=== PATIENT | female | born 1965 | race Caucasian/White ===

== ENCOUNTER 2021-03-02 17:19 | Inpatient (IN) | payer OTHER ==
--- OUTSIDE RECORDS SUMMARY | 2021-03-02 17:23 | XMS REPORT | Continuity of Care Document ---
:1965 Author Organization [facility] t Address [address] [place] [address] Care Team Providers Name Role Phone MENA FARR Attending Clinician Unavailable AMINA Attending Clinician Unavailable MD MARS SANCHZE Attending Clinician Unavailable MICHEL Attending Clinician Unavailable CLIFTON Attending Clinician Unavailable DO FRANCISCA LEONG Attending Clinician Unavailable DR ASHWIN Attending Clinician Unavailable MD BERNARDA FERNANDEZ Attending Clinician Unavailable REBECCA Attending Clinician Unavailable DR Kasandra HOPE Attending Clinician Unavailable ASHWIN Attending Clinician Unavailable MD Ludin CHRISTOPHER Attending Clinician Unavailable Ely Attending Clinician Unavailable MENA FARR Admitting Clinician Unavailable TREASURE Admitting Clinician Unavailable MD TREASURE Admitting Clinician Unavailable SALO Admitting Clinician Unavailable DO FRANCISCA LEONG Admitting Clinician Unavailable DR ASHWIN Admitting Clinician Unavailable MD BERNARDA FERNANDEZ Admitting Clinician Unavailable REBECCA Admitting Clinician Unavailable DR Kasandra HOPE Admitting Clinician Unavailable ASHWIN Admitting Clinician Unavailable MD Ludin CHRISTOPHER Admitting Clinician Unavailable Ely Admitting Clinician Unavailable Payers Payer Name Policy Type Policy Number Effective Date Expiration Date [id number] ADV 00:00:00 Problems This patient has no known problems. Allergies, Adverse Reactions, Alerts Allergy Allergy Status Severity Reaction(s) Onset Inactive Treating Comm ents Source Name Type Date Date Clinician POLLENS Allergy Active Other [facility] NO KNOWN Allergy Active [facility] ALLERGIE S Medications Ordered Filled Start Stop Current Ordering Indication Dosage Frequency Signature Comments Components Source Medication Medication Date Date Medication? Clinician (SIG) Name Name Spironolact Spironolact 2019- No Muriel [address] [facility] one one 09-04 [facility] Vital Signs Vital Name Observation Time Observation Value Comments Source HEIGHT 2020-04-21 18:46:00 162.6 cm WEIGHT 2020-04-21 18:46:00 99.338 kg HEIGHT 2020-04-12 23:28:00 162.6 cm WEIGHT 2020-04-12 23:28:00 91.445 kg HEIGHT 2020-04-21 18:46:00 162.6 cm WEIGHT 2020-04-21 18:46:00 99.338 kg HEIGHT 2020-04-12 23:28:00 162.6 cm WEIGHT 2020-04-12 23:28:00 91.445 kg Procedures This patient has no known procedures. Encounters Start End Encounter Admission Attending Care Care Encounter Source Date/Time Date/Time Type Type Clinicians Facility Department ID 2020-12-17 Inpatient [facility] [id number] [facility] 03:25:31 [facility] 2020-04-12 Inpatient [facility] [id number] [facility] 21:20:00 [facility] 2020-12-26 2021-01-11 Inpatient ERIK HUYNH [facility] [id number] [place] 00:00:00 00:00:[address] 2020-12-23 2020-12-23 Outpatient [facility] [id number] 2020-12-22 2020-12-22 Outpatient [facility] [id number] [place] 00:00:00 00:00:00 ATA [address] 2020-12-09 2020-12-09 Out[facility] [id number] [facility] 2020-11-29 2020-12-03 Inpatient CLIFTON, [facility] [id number] [place] 00:00:00 00:00:00 PADMINI 234 Method i 2020-11-25 2020-11-25 [facility] [id number] [place] 13:00:00 13:00:00 [facility] [place] 2020-11-24 2020-11-24 Inpatient REBECCA, [facility] [id number] [place] 00:00:00 00:00:00 [facility] 707 Method i 2020-11-15 2020-11-15 Outpatient Noelle [facility] [id number] [place] 12:18:00 14:45:00 [facility] [place] 2020-11-07 2020-11-07 Outpatient [facility] [id number] [place] 00:00:00 00:00:00 [facility] 2020-10-18 2020-10-18 Outpatient [facility] [id number] [place] 00:00:00 00:00:00 PHU 793 Method i 2020-10-17 2020-10-17 Outpatient [facility] [id number] [place] 00:00:00 00:00:00 PHU 160 Method i 2020-08-10 2020-08-10 Outpatient [facility] [id number] [place] 00:00:00 00:00:00 [facility] 2020-08-10 2020-08-10 Outpatient [facility] [id number] [facility] 2020-07-11 2020-07-11 Outpatient [facility] [id number] [place] 00:00:00 00:00:00 PHU [address] 2020-07-07 2020-07-07 Outpatient [facility] [id number] [place] 00:00:00 00:00:00 PHU [address] 2020-05-25 2020-05-25 Outpatient ASHWIN [facility] [id number] [place] 00:00:00 00:00:00 [facility] [address] 2020-05-17 2020-05-17 Outpatient [facility] [id number] [facility] 2020-05-16 2020-05-16 Outpatient [place] [id number] [place] 00:00:00 00:00:00 PHU [address] 2020-05-09 2020-05-09 Outpatient [facility] [id number] [facility] 2020-03-22 2020-03-22 Outpatient [facility] [id number] [facility] 2020-01-12 2020-01-12 Outpatient Young_J MMG MMG [id number] [place] 10:29:00 10:29:00 [facility] 2019-09-01 2019-09-01 [facility] [id number] 15:38:00 15:38:00 [facility] Medicine Outpati ent Clinics 2019-08-19 2019-08-19 [facility] [id number] 10:05:00 10:05:00 [facility] Medicine Outpati ent Clinics 2019-08-06 2019-08-06 [facility] [id number] 22:34:00 22:34:00 [facility] Medicine Outpati ent Clinics 2019-08-06 2019-08-06 [facility] [id number] 10:20:00 10:20:00 [facility] Medicine Outpati ent Clinics 2019-01-19 2019-01-19 [facility] [id number] 21:57:00 21:57:00 [facility] Medicine Medicine Outpati ent Clinics 2019-01-19 2019-01-19 [facility] [id number] 10:20:00 10:20:00 [facility] Medicine l Medicine Outpati ent Clinics 2018-07-15 2018-07-15 [facility] [id number] 09:26:00 09:26:00 t [facility] Medicine l Medicine Outpati ent Clinics 2018-06-02 2018-06-02 [facility] [id number] 11:34:00 11:34:00 t [facility] Medicine Medicine Outpati ent Clinics 2018-05-28 2018-05-28 [facility] [id number] 16:42:00 16:42:00 t [facility] Medicine l Medicine Outpati ent Clinics 2018-05-22 2018-05-22 [facility] [id number] 09:36:00 09:36:00 t [facility] Medicine l Medicine Outpati ent Clinics 2018-05-21 2018-05-21 [facility] [id number] 23:31:00 23:31:00 t [facility] Medicine Medicine Outpati ent Clinics 2018-05-21 2018-05-21 [facility] [id number] 15:45:00 15:45:00 t [facility] Medicine l Medicine Outpati ent Clinics 2017-10-02 2017-10-02 [facility] [id number] 10:30:00 10:30:00 t [facility] Medicine l Medicine Outpati ent Clinics 2017-07-31 2017-07-31 [facility] [id number] 09:53:00 09:53:00 t [facility] 2017-06-26 2017-06-26 [facility] [id number] 14:00:00 14:00:00 [facility] Results Test Description Test Time Test Comments Results Result Comments Source SARS-CoV-2 (COVID-19) RNA [Presence] in Respiratory sp ecimen by 2021-01-02 12:39:53 VICTOR M with probe detection Test Item Value Reference Range Interpretation Comme nts SARS-CoV-2 (COVID-19) RNA [Presence] in Respiratory Not detected No t-Detected specimen by VICTOR M with probe detection (test code = 62966-1) Whether patient is employed in a healthcare setting (test code = 93251-6) Whether the patient has symptoms related to condition of interest (test code = 41937-8) Patient was hospitalized because of this condition (test code = 40364-0) Whether the patient was admitted to intensive care unit (ICU) for condition of interest (test code = 90494-4) Whether patient resides in a congregate care setting (test code = 79362-1) SARS-CoV-2 (COVID-19) RNA [Presence] in Respiratory specimen by VICTOR M with probe [id number] 17:45:00 Test Item Value Reference Range Interpretation Comments SARS-CoV-2 (COVID-19) RNA Not detected Not-Detected [Presence] in Respiratory specimen by VICTOR M with probe detection (test code = 52990-2) Whether patient is employed in a healthcare setting (test code = 67425-6) Whether the patient has symptoms related to condition of interest (test code = 43939-0) Patient was hospitalized because of this condition (test code = 10614-2) Whether the patient was admitted to intensive care unit (ICU) for condition of interest (test code = 59727-4) Whether patient resides in a congregate care setting (test code = 11346-2) SARS-CoV-2 (COVID-19) RNA [Presence] in Respiratory specimen by VICTOR M with probe [id number] 03:09:23 Test Item Value Reference Range Interpretation Comments SARS-CoV-2 (COVID-19) RNA Not detected Not-Detected [Presence] in Respiratory specimen by VICTOR M with probe detection (test code = 52789-8) Whether patient is employed in a healthcare setting (test code = 88154-5) Whether the patient has symptoms related to condition of interest (test code = 77706-4) Patient was hospitalized because of this condition (test code = 49431-9) Whether the patient was admitted to intensive care unit (ICU) for condition of interest (test code = 56543-3) Whether patient resides in a congregate care setting (test code = 78309-2) U/S GUIDANCE [id number] 15:11:27 [facility] : 1965 Sex: FEXAMINATION: IMAGE- GUIDED PARACENTESIS.LOCATION: D4.HISTORY: AscitesSEDATION: The patient did not require conscious sedation for the procedure.ANTIBIOTICS: None. Not indicated.TECHNIQUE: The risks, benefits, and alternatives were discussed and informed consent was obtained. Prior to beginning the procedure, [place] Protocol was used to confirm the patient's identity and planned procedure. Sterilebarriers including cap, mask, hand hygiene, sterile gloves, sterile drape and cutaneous antisepsis were used.The patient's abdomen was examined with ultrasound and a suitable pocket of ascitic fluid inthe right lower quadrant was identified. The overlying skin was anesthetized with lidocaine. Using real- time ultrasound guidance, a One-Step centesis needle was advanced into the ascitic fluid. Approximately 5 L of serous fluid was drained. Samples were sent for lab analysis. At the conclusion of the procedure, the catheter was removed and a sterile dressing applied to the site.ESTIMATED BLOOD LOSS: Less than 10 milliliters.COMPLICATIONS: None.DISCHARGED TO: Inpatient unit FINDINGS: Ultrasound demonstrated a large amount of ascitic fluid.IMPRESSION: Successful image-guided paracentesis. Approximately 5 L of fluid was drained. Electronically signed by: Javier Parsons MD 11/15/2020 3:11 PM CDT TIME AND [id number] 13:32:00 Test Item Value Reference Range Interpretation Comments PT (test code = 11.8 s 9.8-13.6 TT) INR (test code = 1.0 INR) INRH (test code = SUGGESTED INRH) THERAPEUTIC RANGE FOR INR: 2.5 - 3.5 For Patients with Prosthetic Valves or Patients with recurrent Thromboembolic Events 2.0 - 3.0 For Most Other Applications PTT (test code = 33.7 s 20.2-38.0 PTT) PTTH (test code = To monitor the PTTH) effectiveness of heparin, we offer the Anti-Xa (Heparin Assay). It can be used for either unfractionated or LMW Heparin. Order Code is ANTI-XA CBC (INCLUDES AUTOMATED DIFFERENTIAL)2020-11-15 13:29:00 Test Item Value Reference Range Interpretation Comments WBC (test code = WBC) 7.9 10\S\3/uL 4.5-11.0 RBC (test code = RBC) 4.12 10\S\6/uL 4.20-5.60 L HGB (test code = HBG) 12.7 g/dL 12.0-15.5 HCT (test code = HCT) 39.2 % 35.0-44.0 MCV (test code = MCV) 95.1 fL 81.0-99.0 MCH (test code = MCH) 30.8 pg 27.0-31.0 MCHC (test code = MCHC) 32.4 g/dL 32.0-36.0 RDW (test code = RDW) 13.8 % 11.5-14.5 PLT (test code = PLT) 173 10\S\3/uL 130-400 MPV (test code = MPV) 11.5 fL 9.4-12.4 NEUTROP # (test code = NE#) 5.7 10\S\3/uL 1.6-8.0 LYMPH # (test code = LY#) 1.2 10\S\3/uL 1.1-3.5 MONOCYTE # (test code = MO#) 0.8 10\S\3/uL 0.0-1.1 EOSINOPH # (test code = EO#) 0.2 10\S\3/uL 0.0-0.7 BASOPHIL # (test code = BA#) 0.1 10\S\3/uL 0.0-0.3 IG # (test code = IG#) 0.02 10\S\3/uL 0.00-0.06 NRBC # (test code = NRBC#) 0.00 10\S\3/uL 0.00-0.01 NEUTROPH % (test code = NE%) 71.7 % 35.0-73.0 LYMPH % (test code = LY%) 14.7 % 20.0-55.0 L MONO % (test code = MO%) 10.5 % 2.5-10.0 H EOSINOPH % (test code = EO%) 2.2 % 0.0-5.0 BASOPHIL % (test code = BA%) 0.6 % 0.0-2.0 IG % (test code = IG%) 0.3 % 0.0-0.8 NRBC% (test code = NRBC%) 0.0 % 0.0-0.2 MANDIFF (test code = MDIFF) NO RBC MORPH (test code = RBCMOR) NORMAL SARS-CoV-2 (COVID-19) RNA [Presence] in Respiratory specimen by VICTOR M with probe [id number] 19:31:52 Test Item Value Reference Range Interpretation Comments SARS-CoV-2 (COVID-19) RNA Not detected Not-Detected [Presence] in Respiratory specimen by VICTOR M with probe detection (test code = 33684-7) Whether patient is employed in a healthcare setting (test code = 59221-7) Whether the patient has symptoms related to condition of interest (test code = 62424-4) Patient was hospitalized because of this condition (test code = 48673-5) Whether the patient was admitted to intensive care unit (ICU) for condition of interest (test code = 23347-2) Whether patient resides in a congregate care setting (test code = 18817-1) SARS-CoV-2 (COVID-19) RNA [Presence] in Respiratory specimen by VICTOR M with probe [id number] 21:20:45 Test Item Value Reference Range Interpretation Comments SARS-CoV-2 (COVID-19) RNA Not detected Not-Detected [Presence] in Respiratory specimen by VICTOR M with probe detection (test code = 71812-7) Whether patient is employed in a healthcare setting (test code = 30155-1) Whether the patient has symptoms related to condition of interest (test code = 77152-0) Patient was hospitalized because of this condition (test code = 51012-7) Whether the patient was admitted to intensive care unit (ICU) for condition of interest (test code = 61545-2) Whether patient resides in a congregate care setting (test code = 15001-6) POCT-GLUCOSE [id number] 12:45:00 Test Item Value Reference Range Interpretation Comments POC-GLUCOSE METER 181 mg/dL 70-110 H : TESTED A T [facility] 1317 (BEAKER) (test code [facility] [address], = 1538) [facility] 77 478: Associate Professor Of Musicology/Techni wing ID = [id number] for Bhavna u, Amena U/S, ABDOMINAL, [id number] 11:21:00Reason for exam:->RULE OUT ASCITES [facility] : 1965 Sex: FFINAL REPORT HISTORY:RULE OUT ASCITES COMPARISON:None. TECHNIQUE:Ultrasound examination of the abdomen was performed with spectral and color Doppler imaging. FINDINGS: Liver:The liver measures 11.6 cm with coarse echogenicity and nodular contour. No focal lesions. The main portal vein measures 0.8 cm.Biliary: Cholecystectomy. Common bile duct measures 0.3 cm. No intrahepatic biliary ductal dilatation.Spleen: 12.7 cm, slightly enlarged.Pancreas: Visualized portions are unremarkable. Kidneys: The kidneys are normal in size without hydronephrosis nor sonographically evidentsolid mass lesion.Midline Vessels: Visualized portions of the IVC and aorta are unremarkable.Peritoneum: Small amount of ascites and small left pleural effusion. IMPRESSION: 1.Cirrhotic liver with ascites.2.Small left pleural effusion. Signed: Benigno Parson Verified Date/Time: 04/22/2020 11: 21:23 Reading Location: [facility] Radiology Reading Room POCT-GLUCOSE [id number] 08:14:00 Test Item Value Reference Range Interpretation Comments POC-GLUCOSE METER 115 mg/dL 70-110 H : TESTED A T [facility] 1317 (BEAKER) (test code [address], = 1538) [place] [address]: Associate Professor Of Musicology/Techni wing ID = [id number] for Brittany Richmonde POCT-GLUCOSE [id number] 07:41:00 Test Item Value Reference Range Interpretation Comments POC-GLUCOSE METER 67 mg/dL 70-110 L : TESTED A T [facility] 1317 (BEAKER) (test code = [address], 1538) [place] [address]: Associate Professor Of Musicology/Techni wing ID = [id number] for Bhavna u Amena HEPATIC FUNCTION [id number] 06:50:00 Test Item Value Reference Range Interpretation Comments TOTAL PROTEIN (BEAKER) 6.1 gm/dL 6.0-8.5 Speci men slightly (test code = 770) hemolyzed ALBUMIN (BEAKER) (test 2.5 g/dL 3.5-5.0 L Speci men slightly code = 1145) hemolyzed BILIRUBIN TOTAL 1.1 mg/dL 0.1-1.2 Specimen sli ghtly (BEAKER) (test code = hemoly zed 377) BILIRUBIN DIRECT 0.4 mg/dL 0.0-0.4 Specimen sl ightly (BEAKER) (test code = hemoly zed 706) ALKALINE PHOSPHATASE 60 U/L 30-115 (BEAKER) (test code = 346) AST (SGOT) (BEAKER) 48 U/L 5-40 H Specimen slightly (test code = 353) hemolyzed ALT (SGPT) (BEAKER) 34 U/L 5-50 Specimen slightly (test code = 347) hemolyzed Associate Professor Of Musicology ID - [id number] ID - [id number] ID - [id number] ID - [id number] ID - [id number] ID - [id number] ID - [id number] ID - [id number] ID - [id number] ID - [id number] METABOLIC [id number] 06:50:00 Test Item Value Reference Range Interpretation Comments SODIUM (BEAKER) (test 139 meq/L 135-148 code = 381) POTASSIUM (BEAKER) 4.8 meq/L 3.6-5.5 Specimen slightly (test code = 379) hemolyzed CHLORIDE (BEAKER) 109 meq/L 98-106 H (test code = 382) CO2 (BEAKER) (test 23 meq/L 20-29 code = 355) BLOOD UREA NITROGEN 28 mg/dL 10-26 H (BEAKER) (test code = 354) CREATININE (BEAKER) 0.52 mg/dL 0.50-1.20 Specimen slightly (test code = 358) hemolyzed GLUCOSE RANDOM 65 mg/dL 70-110 L (BEAKER) (test code = 652) CALCIUM (BEAKER) 8.8 mg/dL 8.5-10.5 (test code = 697) EGFR (BEAKER) (test INSUFFIC IENT CLINICAL code = 1092) DATA TO CALCULA TE ESTIMATED GFR. Associate Professor Of Musicology ID - [id number] ID - [id number] ID - [id number] ID - [id number] ID - [id number] ID - [id number] ID - [id number] ID - [id number] ID - [id number] ID - [id number] 06:46:00 Test Item Value Reference Range Interpretation Comments AMMONIA (BEAKER) 56 mol/L 17-80 Specimen sl ightly (test code = 348) hemolyzed Associate Professor Of Musicology ID - [id number] ID - [id number] ID - [id number] ID - [id number] CBC W/PLT COUNT & AUTO [id number] 06:37:00 Test Item Value Reference Range Interpretation Comments WHITE BLOOD CELL COUNT (BEAKER) 6.9 K/ L 4.0-10.0 (test code = 775) RED BLOOD CELL COUNT (BEAKER) 3.73 M/ L 4.00-5.00 L (test code = 761) HEMOGLOBIN (BEAKER) (test code = 11.6 GM/DL 12.0-15.5 L 410) HEMATOCRIT (BEAKER) (test code = 36.7 % 36.0-46.0 411) MEAN CORPUSCULAR VOLUME (BEAKER) 98.4 fL 82.0-99.0 (test code = 753) MEAN CORPUSCULAR HEMOGLOBIN 31.1 pg 27.0-33.0 (BEAKER) (test code = 751) MEAN CORPUSCULAR HEMOGLOBIN CONC 31.6 GM/DL 32.0-36.0 L (BEAKER) (test code = 752) RED CELL DISTRIBUTION WIDTH 14.0 % 12.0-15.0 (BEAKER) (test code = 412) PLATELET COUNT (BEAKER) (test 167 K/CU MM 150-430 code = 756) MEAN PLATELET VOLUME (BEAKER) 11.7 fL 6.0-11.5 H (test code = 754) NUCLEATED RED BLOOD CELLS 0 /100 WBC 0-0 (BEAKER) (test code = 413) NEUTROPHILS RELATIVE PERCENT 51 % (BEAKER) (test code = 429) LYMPHOCYTES RELATIVE PERCENT 32 % (BEAKER) (test code = 430) MONOCYTES RELATIVE PERCENT 13 % (BEAKER) (test code = 431) EOSINOPHILS RELATIVE PERCENT 3 % (BEAKER) (test code = 432) BASOPHILS RELATIVE PERCENT 1 % (BEAKER) (test code = 437) NEUTROPHILS ABSOLUTE COUNT 3.55 K/ L 1.80-8.00 (BEAKER) (test code = 670) LYMPHOCYTES ABSOLUTE COUNT 2.20 K/ L 1.48-4.50 (BEAKER) (test code = 414) MONOCYTES ABSOLUTE COUNT (BEAKER) 0.92 K/ L 0.00-1.30 (test code = 415) EOSINOPHILS ABSOLUTE COUNT 0.18 K/ L 0.00-0.50 (BEAKER) (test code = 416) BASOPHILS ABSOLUTE COUNT (BEAKER) 0.07 K/ L 0.00-0.20 (test code = 417) IMMATURE GRANULOCYTES-RELATIVE 0 % 0-0 PERCENT (BEAKER) (test code = 2801) SARS-COV2/RT-PCR ([facility])2020-04-22 01:10:00 Test Item Value Reference Range Interpretation Comments SARS-COV2/RT-PCR Negative Not Detected, Performanc e of the Xpert (test code = Negative, See Xpress [id number]) external report SARS-CoV-2/F erika/RSV test for linked test has only bee n established in nasopharyngeal swab specimens. Use of the Xpert Xpress SARS-CoV-2/Flu/ RSV test with other spec imen types has not b een assessed and pe rformance characteristics are unknown. As wi th any molecular test, mutations withi n the targeted geneti c regions identified by t he Xpert Xpress SARS-CoV-2/Flu/ RSV test could affect pr patrica and/or probe bi nding resulting in fa ilure to detect the pres ence of virus or the vi heidy being detected less predictably.Neg ative results do not preclude SARS-CoV-2, Inf luenza A/B, or RSV inf ection and should not be used as the sole bas is for treatment or ot her patient managem ent decisions. Res ults from the Xpert Xpres s SARS-CoV-2/Flu/ RSV test should be corre lated with the clinic al history, epidem iological data, and other data available to th e clinician evalu ating the patient. Inval id test results may occ ur from improper specim en collection; angela lure to follow the trini mmended sample collecti on, handling, and s torage procedures; pako hnical error. False ne gative results may occ ur if virus is presen t at levels below th e analytical limi t of detection (LOD: 131 copies/mL). Vi ral nucleic acid ma y persist in vivo, indepe ndent of virus viability . Detection of an alyte target(s) does not imply that the corres ponding virus(es) are i nfectious or are the caus ative agents for clin ical symptoms. Rece nt patient exposur e to FluMist or oth er live attenuated infl uenza vaccines may ca use inaccurate posi tive results.This te st has been authorized by FDA under an EUA fo r use by authorized labo ratories. This test is o nly authorized for the duration of the declaration precious t circumstances e xist justifying the authorization o f emergency use o f in vitro diagnosti c tests for detection a nd/or diagnosis of CO VID-19 under Section 5 64(b)(1) of the Federal Food, Drug and Cosmet ic Act, 21 U.S.C. 360bbb-3(b)(1), unless the authorizati on is terminated or r evoked sooner.Fact She et for Healthcare Prov iders: https://www.[employer]/ Documents/Xpert %20Xpress %52ADCS-FsY-2-F erika-RSV/30 2-4508%20Rev.%2 0B%20HCP% 20Fact%20Sheet. pdfFact Sheet for Healt hcare Patients: https://www.[employer]/ Documents/Xpert %20Xpress %65DFKA-DhS-3-F erika-RSV/30 2-4507%20Rev.%2 0B%20Pati ent%20Fact%20Sh eet.pdf SARS-COV-2 [facility] Performed at:[facility] PERFORMING LAB [facility]1317 (test code = [facility] [id number][facility] [place] [address] ph: [phone] [id number] 00:10:00 Test Item Value Reference Range Interpretation Comments AMMONIA (BEAKER) 84 mol/L 17-80 H Specimen mo derately (test code = 348) hemolyzed Associate Professor Of Musicology ID - [id number] ID - [id number] ID - [id number] ID - [id number] HEPATIC FUNCTION [id number] 00:10:00 Test Item Value Reference Range Interpretation Comments TOTAL PROTEIN (BEAKER) 7.0 gm/dL 6.0-8.5 Speci men slightly (test code = 770) hemolyzed ALBUMIN (BEAKER) (test 2.9 g/dL 3.5-5.0 L Speci men slightly code = 1145) hemolyzed BILIRUBIN TOTAL 1.2 mg/dL 0.1-1.2 Specimen sli ghtly (BEAKER) (test code = hemoly zed 377) BILIRUBIN DIRECT 0.4 mg/dL 0.0-0.4 Specimen sl ightly (BEAKER) (test code = hemoly zed 706) ALKALINE PHOSPHATASE 70 U/L 30-115 (BEAKER) (test code = 346) AST (SGOT) (BEAKER) 53 U/L 5-40 H Specimen slightly (test code = 353) hemolyzed ALT (SGPT) (BEAKER) 40 U/L 5-50 Specimen slightly (test code = 347) hemolyzed Associate Professor Of Musicology ID - [id number] ID - [id number] ID - VHCS84Sibxusvd ID - [id number] ID - [id number] ID - [id number] ID - [id number] PANEL 2020-04-22 00:10:00 Test Item Value Reference Range Interpretation Comments TRIGLYCERIDES (BEAKER) 72 mg/dL Speci men slightly (test code = 540) hemolyzed CHOLESTEROL (BEAKER) 152 mg/dL Specime n slightly (test code = 631) hemolyzed HDL CHOLESTEROL (BEAKER) 39 mg/dL (test code = 976) LDL CHOLESTEROL 99 mg/dL CALCULATED (BEAKER) (test code = 633) Triglyceride Reference Range: Low Risk <150 Borderline 150-199 High Risk 200-499 Very High Risk >=500Cholesterol Reference Range: Low Risk <200 Borderline 200-239 High Risk >240HDL Cholesterol Reference Range: Low Risk >=60 High Risk <40LDL Cholesterol Reference Range: Optimal <100 Near Optimal 100-129 Borderline 130-159 High 160-189 Very High >=190 Associate Professor Of Musicology ID - JUSTINOperator ID - JUSTINOperator ID - JUSTINOperator ID - [id number] ID - [id number] ID - [id number] METABOLIC PANEL 2020-04-22 00:09:00 Test Item Value Reference Range Interpretation Comments SODIUM (BEAKER) (test 140 meq/L 135-148 code = 381) POTASSIUM (BEAKER) 4.9 meq/L 3.6-5.5 Specimen slightly (test code = 379) hemolyzed CHLORIDE (BEAKER) 106 meq/L 98-106 (test code = 382) CO2 (BEAKER) (test 22 meq/L 20-29 code = 355) BLOOD UREA NITROGEN 29 mg/dL 10-26 H (BEAKER) (test code = 354) CREATININE (BEAKER) 1.16 mg/dL 0.50-1.20 Specimen slightly (test code = 358) hemolyzed GLUCOSE RANDOM 125 mg/dL 70-110 H (BEAKER) (test code = 652) CALCIUM (BEAKER) 9.4 mg/dL 8.5-10.5 (test code = 697) EGFR (BEAKER) (test INSUFFIC IENT CLINICAL code = 1092) DATA TO CALCULA TE ESTIMATED GFR. Associate Professor Of Musicology ID - JUSTINOperator ID - JUSTINOperator ID - JUSTINOperator ID - [id number] ID - [id number] ID - [id number] ID - [id number] ID - CUKL33Dmfeipnj ID - NZLT85Zmgwtoom ID - [id number] [id number] 00:02:00 Test Item Value Reference Range Interpretation Comments PROTIME (BEAKER) 11.8 seconds 9.3-12.0 Final Infor mation (test code = 759) (Auto Outp ut) INR (BEAKER) (test 1.09 See_Comment Final Inf ormation code = 370) (Auto Output) [Automated mess age] The system [employer] generated this result transmitted ref erence range: <=5.90. The reference range was not used to int erpret this result as normal/abnormal . RECOMMENDED COUMADIN/WARFARIN INR THERAPY RANGESSTANDARD DOSE: 2.0 - 3.0 Includes: PROPHYLAXIS forvenous thrombosis, systemic embolization; TREATMENT for venous thrombosis and/or pulmonary embolus.HIGH RISK: Target INR is 2.5-3.5 for patients with mechanical heart valves.CBC W/PLT COUNT & AUTO DIFFERENTIAL 2020-04-21 23:53:00 Test Item Value Reference Range Interpretation Comments WHITE BLOOD CELL COUNT (BEAKER) 7.8 K/ L 4.0-10.0 (test code = 775) RED BLOOD CELL COUNT (BEAKER) 4.17 M/ L 4.00-5.00 (test code = 761) HEMOGLOBIN (BEAKER) (test code = 13.1 GM/DL 12.0-15.5 410) HEMATOCRIT (BEAKER) (test code = 40.5 % 36.0-46.0 411) MEAN CORPUSCULAR VOLUME (BEAKER) 97.1 fL 82.0-99.0 (test code = 753) MEAN CORPUSCULAR HEMOGLOBIN 31.4 pg 27.0-33.0 (BEAKER) (test code = 751) MEAN CORPUSCULAR HEMOGLOBIN CONC 32.3 GM/DL 32.0-36.0 (BEAKER) (test code = 752) RED CELL DISTRIBUTION WIDTH 14.0 % 12.0-15.0 (BEAKER) (test code = 412) PLATELET COUNT (BEAKER) (test 196 K/CU MM 150-430 code = 756) MEAN PLATELET VOLUME (BEAKER) 11.4 fL 6.0-11.5 (test code = 754) NUCLEATED RED BLOOD CELLS 0 /100 WBC 0-0 (BEAKER) (test code = 413) NEUTROPHILS RELATIVE PERCENT 62 % (BEAKER) (test code = 429) LYMPHOCYTES RELATIVE PERCENT 22 % (BEAKER) (test code = 430) MONOCYTES RELATIVE PERCENT 13 % (BEAKER) (test code = 431) EOSINOPHILS RELATIVE PERCENT 2 % (BEAKER) (test code = 432) BASOPHILS RELATIVE PERCENT 1 % (BEAKER) (test code = 437) NEUTROPHILS ABSOLUTE COUNT 4.86 K/ L 1.80-8.00 (BEAKER) (test code = 670) LYMPHOCYTES ABSOLUTE COUNT 1.75 K/ L 1.48-4.50 (BEAKER) (test code = 414) MONOCYTES ABSOLUTE COUNT (BEAKER) 0.98 K/ L 0.00-1.30 (test code = 415) EOSINOPHILS ABSOLUTE COUNT 0.17 K/ L 0.00-0.50 (BEAKER) (test code = 416) BASOPHILS ABSOLUTE COUNT (BEAKER) 0.06 K/ L 0.00-0.20 (test code = 417) IMMATURE GRANULOCYTES-RELATIVE 0 % 0-0 PERCENT (BEAKER) (test code = 2801) CT, BRAIN, WITHOUT [id number] 22:23:00Unlisted Reason for Exam - Click Yes and Enter Reason Below->No [facility] : 1965 Sex: FFINAL REPORT EXAM: CT head without contrast. CLINICAL HISTORY: Altered mental status COMPARISON: None. TECHNIQUE: CT images of the head were obtained without intravenous contrast. This exam was performed according to our departmental dose optimization program which includes automated exposure control, adjustment of the mA and/or kV according to patient's size and/or use of iterative reconstructive technique. FINDINGS:There are mild white matter microvascular ischemic changes.There is no acute intracranial hemorrhage, extra- axial fluid collection, mass effect, herniation, hydrocephalus or large demarcated acute territorial infarct. The basal cisterns are patent. There is intracranial calcific atherosclerosis. The visualized orbits are normal. There is a small polyp orretention cyst in the right maxillary sinus. The tympanomastoid cavities are clear. The skull base and calvarium are intact. IMPRESSION: Mild white matter microvascular ischemic changes.No acute intrac ranial hemorrhage, mass effect or hydrocephalus. Signed: Junior Leung MDRepcox [place] Verified Date/Time:04/21/2020 22:23:12 BODY FLUID CULTURE + GRAM STAIN 2020-04-16 09:20:00 Test Item Value Reference Range Interpretation Comments CULTURE (BEAKER) (test code No growth = 1095) GRAM STAIN RESULT (BEAKER) 2+ WBCs (test code = 1123) GRAM STAIN RESULT (BEAKER) No organisms seen (test code = 45291) POCT-GLUCOSE [id number] 12:33:00 Test Item Value Reference Range Interpretation Comments POC-GLUCOSE METER 114 mg/dL 70-110 H : TESTED A T [facility] [address] (BEAKER) (test code [address], = 1538) [facility] 77 478: Associate Professor Of Musicology/Techni wing ID = [id number] for Tan Janessa horner POCT-GLUCOSE [id number] 08:54:00 Test Item Value Reference Range Interpretation Comments POC-GLUCOSE METER 88 mg/dL 70-110 : TESTED A T [address] (BEAKER) (test code = [address], [address]) [place] [address] 478: Associate Professor Of Musicology/Techni wing ID = [id number] for Tan Arline hornera [id number] 04:33:00 Test Item Value Reference Range Interpretation Comments AMMONIA (BEAKER) (test code = 348) 44 mol/L 17-80 Associate Professor Of Musicology ID - LITOOperator ID - LITOOperator ID - LITOOperator ID - LITOCBC W/PLT COUNT & AUTO [id number] 04:24:00 Test Item Value Reference Range Interpretation Comments WHITE BLOOD CELL COUNT (BEAKER) 7.6 K/ L 4.0-10.0 (test code = 775) RED BLOOD CELL COUNT (BEAKER) 4.25 M/ L 4.00-5.00 (test code = 761) HEMOGLOBIN (BEAKER) (test code = 13.2 GM/DL 12.0-15.5 410) HEMATOCRIT (BEAKER) (test code = 41.2 % 36.0-46.0 411) MEAN CORPUSCULAR VOLUME (BEAKER) 96.9 fL 82.0-99.0 (test code = 753) MEAN CORPUSCULAR HEMOGLOBIN 31.1 pg 27.0-33.0 (BEAKER) (test code = 751) MEAN CORPUSCULAR HEMOGLOBIN CONC 32.0 GM/DL 32.0-36.0 (BEAKER) (test code = 752) RED CELL DISTRIBUTION WIDTH 13.6 % 12.0-15.0 (BEAKER) (test code = 412) PLATELET COUNT (BEAKER) (test 197 K/CU MM 150-430 code = 756) MEAN PLATELET VOLUME (BEAKER) 10.7 fL 6.0-11.5 (test code = 754) NUCLEATED RED BLOOD CELLS 0 /100 WBC 0-0 (BEAKER) (test code = 413) NEUTROPHILS RELATIVE PERCENT 56 % (BEAKER) (test code = 429) LYMPHOCYTES RELATIVE PERCENT 29 % (BEAKER) (test code = 430) MONOCYTES RELATIVE PERCENT 10 % (BEAKER) (test code = 431) EOSINOPHILS RELATIVE PERCENT 3 % (BEAKER) (test code = 432) BASOPHILS RELATIVE PERCENT 1 % (BEAKER) (test code = 437) NEUTROPHILS ABSOLUTE COUNT 4.30 K/ L 1.80-8.00 (BEAKER) (test code = 670) LYMPHOCYTES ABSOLUTE COUNT 2.23 K/ L 1.48-4.50 (BEAKER) (test code = 414) MONOCYTES ABSOLUTE COUNT (BEAKER) 0.77 K/ L 0.00-1.30 (test code = 415) EOSINOPHILS ABSOLUTE COUNT 0.24 K/ L 0.00-0.50 (BEAKER) (test code = 416) BASOPHILS ABSOLUTE COUNT (BEAKER) 0.08 K/ L 0.00-0.20 (test code = 417) IMMATURE GRANULOCYTES-RELATIVE 0 % 0-0 PERCENT (BEAKER) (test code = 2801) POCT-GLUCOSE [id number] 19:32:00 Test Item Value Reference Range Interpretation Comments POC-GLUCOSE METER 113 mg/dL 70-110 H : TESTED A T [facility] [address] (BEAKER) (test code [address], = 1538) [place] [address] 478: Associate Professor Of Musicology/Techni wing ID = [id number] for Renee Patel POCT-GLUCOSE [id number] 11:42:00 Test Item Value Reference Range Interpretation Comments POC-GLUCOSE METER 143 mg/dL 70-110 H : TESTED A T [address] (BEAKER) (test code [address], = 1538) [place] [address] 478: Associate Professor Of Musicology/Techni wing ID = [id number] for Quyen Yenni cox COMPREHENSIVE METABOLIC [id number] 06:11:00 Test Item Value Reference Range Interpretation Comments TOTAL PROTEIN 6.6 gm/dL 6.0-8.5 (BEAKER) (test code = 770) ALBUMIN (BEAKER) 2.8 g/dL 3.5-5.0 L (test code = 1145) ALKALINE PHOSPHATASE 70 U/L 30-115 (BEAKER) (test code = 346) BILIRUBIN TOTAL 1.0 mg/dL 0.1-1.2 (BEAKER) (test code = 377) SODIUM (BEAKER) (test 136 meq/L 135-148 code = 381) POTASSIUM (BEAKER) 4.9 meq/L 3.6-5.5 (test code = 379) CHLORIDE (BEAKER) 109 meq/L 98-106 H (test code = 382) CO2 (BEAKER) (test 19 meq/L 20-29 L code = 355) BLOOD UREA NITROGEN 19 mg/dL 10-26 (BEAKER) (test code = 354) CREATININE (BEAKER) 1.01 mg/dL 0.50-1.20 (test code = 358) GLUCOSE RANDOM 101 mg/dL 70-110 (BEAKER) (test code = 652) CALCIUM (BEAKER) 8.8 mg/dL 8.5-10.5 (test code = 697) AST (SGOT) (BEAKER) 50 U/L 5-40 H (test code = 353) ALT (SGPT) (BEAKER) 29 U/L 5-50 (test code = 347) EGFR (BEAKER) (test INSUFFIC IENT CLINICAL code = 1092) DATA TO CALCULA TE ESTIMATED GFR. Associate Professor Of Musicology ID - [id number] ID - [id number] ID - TKEJ67Gpffcdwj ID - VVPB24Rgrcwlnq ID - FOHA08Hyjkxtcr ID - XMSB00Uwtsvfdv ID - KBYV23Ydnmwgna ID - UCTP86Jcdyedej ID - URUW91Nmmtpnsk ID - JNEU07Lrqznbig ID - IRNO12Icmdnoki ID - VNOF05Qmaylcut ID - SUIH43Csjtmrzz ID - TSRP10Nfemilbl ID - PEVA65Krrfpcup ID - VUQX92Rrqjdmqb ID - LNIV01Tvudrbvs ID - QVZS26Nxzpjygj ID - AFNV07HBI W/PLT COUNT & AUTO [id number] 05:47:00 Test Item Value Reference Range Interpretation Comments WHITE BLOOD CELL COUNT (BEAKER) 7.0 K/ L 4.0-10.0 (test code = 775) RED BLOOD CELL COUNT (BEAKER) 3.96 M/ L 4.00-5.00 L (test code = 761) HEMOGLOBIN (BEAKER) (test code = 12.5 GM/DL 12.0-15.5 410) HEMATOCRIT (BEAKER) (test code = 40.0 % 36.0-46.0 411) MEAN CORPUSCULAR VOLUME (BEAKER) 101.0 fL 82.0-99.0 H (test code = 753) MEAN CORPUSCULAR HEMOGLOBIN 31.6 pg 27.0-33.0 (BEAKER) (test code = 751) MEAN CORPUSCULAR HEMOGLOBIN CONC 31.3 GM/DL 32.0-36.0 L (BEAKER) (test code = 752) RED CELL DISTRIBUTION WIDTH 13.9 % 12.0-15.0 (BEAKER) (test code = 412) PLATELET COUNT (BEAKER) (test 186 K/CU MM 150-430 code = 756) MEAN PLATELET VOLUME (BEAKER) 11.1 fL 6.0-11.5 (test code = 754) NUCLEATED RED BLOOD CELLS 0 /100 WBC 0-0 (BEAKER) (test code = 413) NEUTROPHILS RELATIVE PERCENT 52 % (BEAKER) (test code = 429) LYMPHOCYTES RELATIVE PERCENT 30 % (BEAKER) (test code = 430) MONOCYTES RELATIVE PERCENT 13 % (BEAKER) (test code = 431) EOSINOPHILS RELATIVE PERCENT 4 % (BEAKER) (test code = 432) BASOPHILS RELATIVE PERCENT 1 % (BEAKER) (test code = 437) NEUTROPHILS ABSOLUTE COUNT 3.67 K/ L 1.80-8.00 (BEAKER) (test code = 670) LYMPHOCYTES ABSOLUTE COUNT 2.13 K/ L 1.48-4.50 (BEAKER) (test code = 414) MONOCYTES ABSOLUTE COUNT (BEAKER) 0.88 K/ L 0.00-1.30 (test code = 415) EOSINOPHILS ABSOLUTE COUNT 0.26 K/ L 0.00-0.50 (BEAKER) (test code = 416) BASOPHILS ABSOLUTE COUNT (BEAKER) 0.08 K/ L 0.00-0.20 (test code = 417) IMMATURE GRANULOCYTES-RELATIVE 0 % 0-0 PERCENT (BEAKER) (test code = 2801) [id number] 05:43:00 Test Item Value Reference Range Interpretation Comments AMMONIA (BEAKER) (test code = 348) 71 mol/L 17-80 Associate Professor Of Musicology ID - [id number] ID - bwng07Svwovber ID - eizs85Xmhkqaro ID - [id number] POCT-GLUCOSE [id number] 21:45:00 Test Item Value Reference Range Interpretation Comments POC-GLUCOSE METER 152 mg/dL 70-110 H : TESTED A T [facility] [address] (BEAKER) (test code [address], = 1538) [place] [address] 478: Associate Professor Of Musicology/Techni wing ID = [id number] for Elizabeth Zambrano ALPHA FETOPROTEIN (AFP), TUMOR [id number] 18:51:00 Test Item Value Reference Range Interpretation Comments ALPHA-FETOPROTEIN (BEAKER) (test 2.6 ng/mL <10.0 code = 1094) Associate Professor Of Musicology ID - BSPOCT-GLUCOSE [id number] 15:40:00 Test Item Value Reference Range Interpretation Comments POC-GLUCOSE METER 108 mg/dL 70-110 : TESTED A T [facility] [address] (BEAKER) (test code [address], = 1538) [place] [address]: Associate Professor Of Musicology/Techni wing ID = [id number] for Yenni Chahal BODY FLUID CELL COUNT WITH [id number] 14:05:00 Test Item Value Reference Range Interpretation Comments APPEARANCE FLUID Slightly Hazy Clear A (BEAKER) (test code = 510) COLOR FLUID (BEAKER) Yellow Colorless, Straw A (test code = 511) RBC FLUID (BEAKER) 105 /cu mm <=1 H (test code = 513) ADJUSTED WBC FLUID 467 /cu mm <=5 H (BEAKER) (test code = 1691) LINING CELLS (BEAKER) 56 /cu mm <=1 H (test code = 1590) NEUTROPHILS FLUID 26 % (BEAKER) (test code = 1656) LYMPHS FLUID (BEAKER) 21 % (test code = 488) MONO/MACROPHAGE FLUID 53 % (BEAKER) (test code = 489) EOSINOPHILS FLUID 0 % (BEAKER) (test code = 491) BASO FLUID (BEAKER) 0 % (test code = 492) INTERPRETATION-210 Agree with (BEAKER) (test code = differential count. 2619) [id number] Susanne Cota M.D. (BEAKER) (test code = (electronic signature) 7295) CONTAINER BODY FLUID EDTA Tube (BEAKER) (test code = 2873) U/S, [id number] 14:02:00Labs to be ordered:->Body Fluid Culture (w/Gram Stain, C\T\S)Labs to be ordered:->Cell CountReason for exam:->ascitesHAYDEN ST. [facility] : 1965 Sex: FFINAL REPORT History: Ascites. Procedure: Following informed written consent, the patient'sleft lower quadrant was prepped and draped in the usual sterile manner. 2% lidocaine was given locally for anesthesia. No conscious sedation was administered. Using ultrasound guidance and a 5 gabonese angiocatheter, access was gained to the left lower quadrant peritoneal cavity. Approximately 3000 cc of clear yellow fluid was without incident. Small samples of fluid were submitted for the requested studies. Findings: Images obtained prior the procedure demonstrate a moderate amount of anechoic fluid within the peritoneal cavity surrounding multiple loops of bowel. Impression: 1. Successful ultrasound guided paracentesis. Approximately 3000 cc of ascitic fluid was removed without complications. Signed: Carlos Rodriguez Verified Date/Time: 04/13/2020 14:02:17 Reading Location: [facility] Radiology Reading Room BAR [id number] 13:54:00 Test Item Value Reference Range Interpretation Comments TROPONIN I (BEAKER) (test code = 397) < ng/mL 0.00-0.15 Troponin I (TnI) levels must be interpreted in the context of the presenting symptoms and the clinical findings. Elevated TnI levels indicate myocardial damage, but are not specific for ischemic heart disease. Elevated TnI levels are seen in patients with other cardiac conditions (including myocarditis and congestive heart failure), and slight TnI elevations occur in patients with other conditions, including sepsis, renal failure, acidosis, acute neurological disease, and persistent tachyarrhythmia.Associate Professor Of Musicology ID - [id number] 13:40:00 Test Item Value Reference Range Interpretation Comments AMMONIA (BEAKER) 85 mol/L 17-80 H Specimen sl ightly (test code = 348) hemolyzed Associate Professor Of Musicology ID - [id number] ID - [id number] ID - oslo53Bbcmlwlc ID - [id number] POCT-GLUCOSE [id number] 12:55:00 Test Item Value Reference Range Interpretation Comments POC-GLUCOSE METER 157 mg/dL 70-110 H : TESTED A T [address] [address] (BEAKER) (test code [address], = 1538) [facility] [address] 478: Associate Professor Of Musicology/Techni wing ID = [id number] for Yenni Chahal MR, BRAIN, [id number] 12:01:00Unlisted Reason for Exam - Click Yes and Enter Reason Below->YesUnlisted Reason for Exam->Hepatic [facility]cephal[facility] : 1965 Sex: FFINAL REPORT MRI Brain with and without contrast Clinical History: Unlisted Reason for ExamHepatic Encephalopathy Technique: MRI of the brain utilizing axial T1, T2, FLAIR, GRE, DWI, sagittal T1; and postgadolinium axial, sagittal, and coronal T1-weighted images. Comparisons: None Findings: There is no abnormal intracranial enhancement or mass. There is no evidence of acute infarct or hemorrhage. There is mild to moderate T2 hyperintense periventricular and subcortical white disease. There is mild generalized sulcal prominence without hydrocephalus, midline shift, or apparent mass effect. There are no extra-axial fluid collections. The craniocervical junction is preserved. The major intracranial flow-voids appear patent. IMPRESSION: No evidence of acute infarct, hemorrhage, hydrocephalus, or mass. Sqnx-ff-vzvgynzz nonspecific white matter disease. Signed: Gibson Pagan MDReport Verified Date/Time: 04/13/2020 12:01:31 Reading Location: [address] Neuro Reading Room POCT-GLUCOSE METER 2020-04-13 09:01:00 Test Item Value Reference Range Interpretation Comments POC-GLUCOSE METER 184 mg/dL 70-110 H : TESTED A T [facility] (BEAKER) (test code [facility] [place] [address] [address], = 1538) [facility] [address] 478: Associate Professor Of Musicology/Techni wing ID = [id number] for Yenni Chahal TROPONIN [id number] 07:03:00 Test Item Value Reference Range Interpretation Comments TROPONIN I (BEAKER) (test code = 397) < ng/mL 0.00-0.15 Troponin I (TnI) levels must be interpreted in the context of the presenting symptoms and the clinical findings. Elevated TnI levels indicate myocardial damage, but are not specific for ischemic heart disease. Elevated TnI levels are seen in patients with other cardiac conditions (including myocarditis and congestive heart failure), and slight TnI elevations occur in patients with other conditions, including sepsis, renal failure, acidosis, acute neurological disease, and persistent tachyarrhythmia.Associate Professor Of Musicology ID - LITOHEPATIC FUNCTION PANEL 2020-04-13 07:02:00 Test Item Value Reference Range Interpretation Comments TOTAL PROTEIN (BEAKER) (test code = 6.4 gm/dL 6.0-8.5 770) ALBUMIN (BEAKER) (test code = 1145) 2.8 g/dL 3.5-5.0 L BILIRUBIN TOTAL (BEAKER) (test code 1.4 mg/dL 0.1-1.2 H = 377) BILIRUBIN DIRECT (BEAKER) (test 0.8 mg/dL 0.0-0.4 H code = 706) ALKALINE PHOSPHATASE (BEAKER) (test 73 U/L 30-115 code = 346) AST (SGOT) (BEAKER) (test code = 44 U/L 5-40 H 353) ALT (SGPT) (BEAKER) (test code = 27 U/L 5-50 347) Associate Professor Of Musicology ID - LITOOperator ID - LITOOperator ID - LITOOperator ID - LITOOperator ID - LITOOperator ID - LITOOperator ID - [id number] 06:54:00 Test Item Value Reference Range Interpretation Comments MAGNESIUM (BEAKER) (test code = 1.8 mg/dL 1.5-3.0 627) Associate Professor Of Musicology ID - LITOOperator ID - LITOOperator ID - LITOOperator ID - LITOLIPID [id number] 06:53:00 Test Item Value Reference Range Interpretation Comments TRIGLYCERIDES (BEAKER) (test code = 64 mg/dL 540) CHOLESTEROL (BEAKER) (test code = 156 mg/dL 631) HDL CHOLESTEROL (BEAKER) (test code 29 mg/dL = 976) LDL CHOLESTEROL CALCULATED (BEAKER) 114 mg/dL (test code = 633) Triglyceride Reference Range: Low Risk <150 Borderline 150-199 High Risk 200-499 Very High Risk >=500Cholesterol Reference Range: Low Risk <200 Borderline 200-239 High Risk >240HDL Cholesterol Reference Range: Low Risk >=60 High Risk <40LDL Cholesterol Reference Range: Optimal <100 Near Optimal 100-129 Borderline 130-159 High 160-189 Very High >=190 Associate Professor Of Musicology ID - LITOOperator ID - LITOOperator ID - LITOPHOSPHORUS 2020-04-13 06:51:00 Test Item Value Reference Range Interpretation Comments PHOSPHORUS (BEAKER) (test code = 3.5 mg/dL 2.5-4.5 604) Associate Professor Of Musicology ID - LITOHEMOGLOBIN [id number] 06:49:00 Test Item Value Reference Range Interpretation Comments HEMOGLOBIN A1C (BEAKER) (test code = 6.3 % 4.3-6.1 H 368) Associate Professor Of Musicology ID - LITOPROTHROMBIN TIME/[id number] 06:49:00 Test Item Value Reference Range Interpretation Comments PROTIME (BEAKER) 12.0 seconds 9.3-12.0 Final Infor mation (test code = 759) (Auto Outp ut) INR (BEAKER) (test 1.11 <=5.90 Final Inf ormation code = 370) (Auto Output) RECOMMENDED COUMADIN/WARFARIN INR THERAPY RANGESSTANDARD DOSE: 2.0 - 3.0 Includes: PROPHYLAXIS forvenous thrombosis, systemic embolization; TREATMENT for venous thrombosis and/or pulmonary embolus.HIGH RISK: Target INR is 2.5-3.5 for patients with mechanical heart valves.CBC W/PLT COUNT & AUTO DIFFERENTIAL 2020-04-13 06:39:00 Test Item Value Reference Range Interpretation Comments WHITE BLOOD CELL COUNT (BEAKER) 6.6 K/ L 4.0-10.0 (test code = 775) RED BLOOD CELL COUNT (BEAKER) 3.78 M/ L 4.00-5.00 L (test code = 761) HEMOGLOBIN (BEAKER) (test code = 11.7 GM/DL 12.0-15.5 L 410) HEMATOCRIT (BEAKER) (test code = 36.7 % 36.0-46.0 411) MEAN CORPUSCULAR VOLUME (BEAKER) 97.1 fL 82.0-99.0 (test code = 753) MEAN CORPUSCULAR HEMOGLOBIN 31.0 pg 27.0-33.0 (BEAKER) (test code = 751) MEAN CORPUSCULAR HEMOGLOBIN CONC 31.9 GM/DL 32.0-36.0 L (BEAKER) (test code = 752) RED CELL DISTRIBUTION WIDTH 14.1 % 12.0-15.0 (BEAKER) (test code = 412) PLATELET COUNT (BEAKER) (test 180 K/CU MM 150-430 code = 756) MEAN PLATELET VOLUME (BEAKER) 11.0 fL 6.0-11.5 (test code = 754) NUCLEATED RED BLOOD CELLS 0 /100 WBC 0-0 (BEAKER) (test code = 413) NEUTROPHILS RELATIVE PERCENT 54 % (BEAKER) (test code = 429) LYMPHOCYTES RELATIVE PERCENT 28 % (BEAKER) (test code = 430) MONOCYTES RELATIVE PERCENT 13 % (BEAKER) (test code = 431) EOSINOPHILS RELATIVE PERCENT 3 % (BEAKER) (test code = 432) BASOPHILS RELATIVE PERCENT 1 % (BEAKER) (test code = 437) NEUTROPHILS ABSOLUTE COUNT 3.55 K/ L 1.80-8.00 (BEAKER) (test code = 670) LYMPHOCYTES ABSOLUTE COUNT 1.81 K/ L 1.48-4.50 (BEAKER) (test code = 414) MONOCYTES ABSOLUTE COUNT (BEAKER) 0.87 K/ L 0.00-1.30 (test code = 415) EOSINOPHILS ABSOLUTE COUNT 0.22 K/ L 0.00-0.50 (BEAKER) (test code = 416) BASOPHILS ABSOLUTE COUNT (BEAKER) 0.09 K/ L 0.00-0.20 (test code = 417) IMMATURE GRANULOCYTES-RELATIVE 0 % 0-0 PERCENT (BEAKER) (test code = 2801) SARS-COV2/RT-PCR ([facility])2020-04-13 02:19:00 Test Item Value Reference Range Interpretation Comments SARS-COV2/RT-PCR Negative Not Detected, Performanc e of the Xpert (test code = Negative, See Xpress [id number]) external report SARS-CoV-2/F erika/RSV test for linked test has only bee n established in nasopharyngeal swab specimens. Use of the Xpert Xpress SARS-CoV-2/Flu/ RSV test with other spec imen types has not b een assessed and pe rformance characteristics are unknown. As wi th any molecular test, mutations withi n the targeted geneti c regions identified by t he Xpert Xpress SARS-CoV-2/Flu/ RSV test could affect pr patrica and/or probe bi nding resulting in fa ilure to detect the pres ence of virus or the vi heidy being detected less predictably.Neg ative results do not preclude SARS-CoV-2, Inf luenza A/B, or RSV inf ection and should not be used as the sole bas is for treatment or ot her patient managem ent decisions. Res ults from the Xpert Xpres s SARS-CoV-2/Flu/ RSV test should be corre lated with the clinic al history, epidem iological data, and other data available to th e clinician evalu ating the patient. Inval id test results may occ ur from improper specim en collection; angela lure to follow the trini mmended sample collecti on, handling, and s torage procedures; pako hnical error. False ne gative results may occ ur if virus is presen t at levels below th e analytical limi t of detection (LOD: 131 copies/mL). Vi ral nucleic acid ma y persist in vivo, indepe ndent of virus viability . Detection of an alyte target(s) does not imply that the corres ponding virus(es) are i nfectious or are the caus ative agents for clin ical symptoms. Rece nt patient exposur e to FluMist or oth er live attenuated infl uenza vaccines may ca use inaccurate posi tive results.This te st has been authorized by FDA under an EUA fo r use by authorized labo ratories. This test is o nly authorized for the duration of the declaration precious t circumstances e xist justifying the authorization o f emergency use o f in vitro diagnosti c tests for detection a nd/or diagnosis of CO VID-19 under Section 5 64(b)(1) of the Federal Food, Drug and Cosmet ic Act, 21 U.S.C. 360bbb-3(b)(1), unless the authorizati on is terminated or r evoked sooner.Fact She et for Healthcare Prov iders: https://www.[employer]/ Documents/Xpert %20Xpress %49EQQE-XlO-3-F erika-RSV/30 2-4508%20Rev.%2 0B%20HCP% 20Fact%20Sheet. pdfFact Sheet for Healt hcare Patients: https://www.[employer]/ Documents/Xpert %20Xpress %41ZDFW-DdQ-9-F erika-RSV/30 2-4507%20Rev.%2 0B%20Pati ent%20Fact%20Sh eet.pdf SARS-COV-2 SLSL Performed at:[facility]FORMING LAB [facility] (test code = [facility] [id number][facility] [place] [address] ph: [phone] COMPREHENSIVE METABOLIC [id number] 01:19:00 Test Item Value Reference Range Interpretation Comments TOTAL PROTEIN 7.0 gm/dL 6.0-8.5 (BANNER) (test code = 770) ALBUMIN (BANNER) 3.1 g/dL 3.5-5.0 L (test code = 1145) ALKALINE PHOSPHATASE 76 U/L 30-115 (BANNER) (test code = 346) BILIRUBIN TOTAL 1.4 mg/dL 0.1-1.2 H (BEAKER) (test code = 377) SODIUM (BEAKER) (test 137 meq/L 135-148 code = 381) POTASSIUM (BEAKER) 4.6 meq/L 3.6-5.5 (test code = 379) CHLORIDE (BEAKER) 106 meq/L 98-106 (test code = 382) CO2 (BEAKER) (test 21 meq/L 20-29 code = 355) BLOOD UREA NITROGEN 22 mg/dL 10-26 (BEAKER) (test code = 354) CREATININE (BEAKER) 1.00 mg/dL 0.50-1.20 (test code = 358) GLUCOSE RANDOM 99 mg/dL 70-110 (BEAKER) (test code = 652) CALCIUM (BEAKER) 9.2 mg/dL 8.5-10.5 (test code = 697) AST (SGOT) (BEAKER) 42 U/L 5-40 H (test code = 353) ALT (SGPT) (BEAKER) 28 U/L 5-50 (test code = 347) EGFR (BEAKER) (test INSUFFIC IENT CLINICAL code = 1092) DATA TO CALCULA TE ESTIMATED GFR. Associate Professor Of Musicology ID - LITOOperator ID - LITOOperator ID - LITOOperator ID - LITOOperator ID - LITOOperator ID - LITOOperator ID - LITOOperator ID - LITOOperator ID - LITOOperator ID - LITOOperator ID - LITOOperator ID - LITOOperator ID - LITOOperator ID - LITOOperator ID - LITOOperator ID - LITOOperator ID - L ITOOperator ID - LITOOperator ID - LITOTROPONIN [id number] 01:17:00 Test Item Value Reference Range Interpretation Comments TROPONIN I (BEAKER) (test code = 397) < ng/mL 0.00-0.15 Troponin I (TnI) levels must be interpreted in the context of the presenting symptoms and the clinical findings. Elevated TnI levels indicate myocardial damage, but are not specific for ischemic heart disease. Elevated TnI levels are seen in patients with other cardiac conditions (including myocarditis and congestive heart failure), and slight TnI elevations occur in patients with other conditions, including sepsis, renal failure, acidosis, acute neurological disease, and persistent tachyarrhythmia.Associate Professor Of Musicology ID - LITOPOCT-GLUCOSE METER 2020-04-12 21:49:00 Test Item Value Reference Range Interpretation Comments POC-GLUCOSE METER 111 mg/dL 70-110 H : TESTED A T [facility] 1317 (BANNER) (test code [address], = 1538) [facility] 77 478: Associate Professor Of Musicology/Techni wing ID = [id number] for Renee Patel
--- NOTE | 2021-03-02 18:43 | RAD REPORT ---
EXAM DESCRIPTION: CT - Head Brain Wo Cont - 03/02/2021 6:32 pm CLINICAL HISTORY: Alteration of awareness/confusion COMPARISON: None TECHNIQUE: Computed axial tomography of the head was obtained. IV contrast was not requested. All CT scans are performed using dose optimization technique as appropriate and may include automated exposure control or mA/KV adjustment according to patient size. FINDINGS: An intracranial bleed is not seen . The ventricles are normal in caliber. No extra-axial fluid collection is noted. Mild to moderate low-density areas within periventricular, deep and subcortical white matter likely r epresent ischemic changes secondary to small vessel disease. Fluid within the sinuses/ mastoids is not seen. IMPRESSION: No acute intracranial abnormality is seen. If patient's symptoms persist MRI of the bra in would be recommended.
[2021-03-02 18:44] LABS: Absolute Lymphocytes (CBC) 1.5 K/uL (0.7-4.9); Basophils % 0.8 % (0-1.3); Hematocrit 36.9 % (36.0-45.0); Lymphocytes % 22.8 % (15.3-44.8); MPV 8.9 fL (7.6-11.3); RBC Red Blood Cell Count 3.97 M/uL (3.86-4.86)
--- NOTE | 2021-03-02 18:45 | RAD REPORT ---
EXAM DESCRIPTION: Zen Single View03/02/2021 6:37 pm CLINICAL HISTORY: Alteration of consciousness COMPARISON: 2008 FINDINGS: The lungs appear clear of acute infiltrate. The heart is normal size . Central venous catheter has its tip in the superior vena cava IMPRESSION: No acute abnormalities displayed
[2021-03-02 18:49] LABS: Protime INR 1.02
[2021-03-02] MEDS ORDERED: NA CHLORIDE 0.9% 1,000 ML ONE (18:57)
[2021-03-02 19:11] LABS: Urine Blood Negative (Negative); Urine Glucose Trace (Negative); Urine Protein Negative (Negative); Urine Specific Gravity 1.015 (1.005-1.030); Urine pH 8.5 (5.0-7.0)
[2021-03-02 19:12] LABS: ALT/SGPT 57 U/L (12-78); AST/SGOT 66 U/L (15-37); Albumin 2.6 g/dL (3.4-5.0); Alkaline Phosphatase 260 U/L (45-117); BUN Blood Urea Nitrogen 13 mg/dL (7-18); Bicarbonate 26 mmol/L (21-32); Bilirubin Direct 1.1 mg/dL (0-0.2); Bilirubin Total 1.9 mg/dL (0.2-1.0); Glucose Level 194 mg/dL (74-106); Magnesium 2.2 mg/dL (1.8-2.4); NT PRO-BNP 367 pg/mL (<125); Potassium 4.9 mmol/L (3.5-5.1); Protein, Total 7.6 g/dL (6.4-8.2); Sodium Level 141 mmol/L (136-145); Troponin (Emerg Dept Use Only) < 0.02 ng/mL (0.0-0.045)
[2021-03-02 19:22] LABS: Urine Specific Gravity/Preg 1.015 (1.005-1.030)
[2021-03-02 19:40] LABS: Barbiturates NEGATIVE (NEGATIVE); Benzodiazepines NEGATIVE (NEGATIVE); Cocaine NEGATIVE (NEGATIVE); METHAMPHETAM NEGATIVE (NEGATIVE); Methadone NEGATIVE (NEGATIVE); Opiates NEGATIVE (NEGATIVE); Phencyclidine NEGATIVE (NEGATIVE); THC Cannibis NEGATIVE (NEGATIVE)
--- NOTE | 2021-03-02 19:45 | EDPHYS ---
Physician Documentation [facility] Name: Nieves Juarez Age: 55 yrs Sex: Female : 1965 Arrival Date: 03/02/2021 Time: 17:45 Bed 7 Private MD: ED Physician Shorty Ca HPI: 03/02 18:41 This 55 yrs old Female presents to ER via EMS with complaints of Altered Mental Status. kdr 18:41 The patient presents with decreased mental status, decreased responsiveness. Onset: The kdr symptoms/episode began/occurred at an unknown time. Possible causes: head injury, low blood sugar, sepsis, Elevated ammonia secondary to cirrhosis. Associated signs and symptoms: The patient has no apparent associated signs or symptoms. Current symptoms: In the emergency department the patient's symptoms are unchanged from the initial presentation. Patient's baseline: Neuro: alert and fully oriented, Motor: no deficits, Ambulation: walks without assistance, Speech: normal for age, The patient has a previous history of Cirrhosis and hepatic encephalopathy. The patient has experienced similar episodes in the past, multiple times. It is unknown whether or not the patient has recently seen a physician. Patient is currently poorly responsive and says "yes "to questions if responsive at all. 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 - Social history:: Smoking status: unknown. ROS: 18:41 Constitutional: Unobtainable secondary to altered mental status kdr 18:41 Unable to obtain ROS due to obtunded state. Exam: 18:15 ECG was reviewed by the Attending Physician. kdr 19:04 Constitutional: This is a well developed, well nourished patient who is somnolent but kdr otherwise in no acute distress. Head/Face: Normocephalic, atraumatic. Eyes: Pupils equal round and reactive to light, extra-ocular motions intact. Lids and lashes normal. Conjunctiva and sclera are non-icteric and not injected. Cornea within normal limits. Periorbital areas with no swelling, redness, or edema. Neck: Trachea midline, no thyromegaly or masses palpated, and no cervical lymphadenopathy. Supple, full range of motion without nuchal rigidity, or vertebral point tenderness. No Meningismus. Chest/axilla: Normal chest wall appearance and motion. Nontender with no deformity. No lesions are appreciated. Cardiovascular: Regular rate and rhythm with a normal S1 and S2. No gallops, murmurs, or rubs. Normal PMI, no JVD. No pulse deficits. Respiratory: Lungs have equal breath sounds bilaterally, clear to auscultation and percussion. No rales, rhonchi or wheezes noted. No increased work of breathing, no retractions or nasal flaring. Abdomen/GI: Soft, non-tender, with normal bowel sounds. No distension or tympany. No guarding or rebound. No evidence of tenderness throughout. Back: No spinal tenderness. No costovertebral tenderness. Full range of motion. Skin: Warm, dry with normal turgor. Normal color with no rashes, no lesions, and no evidence of cellulitis. MS/ Extremity: Pulses equal, no cyanosis. Neurovascular intact. Full, normal range of motion. 19:04 Neuro: Orientation: unable to test, Mentation: unable to follow commands, somnolent, responsive to pain. Vital Signs: 17:55 BP 145 / 75 RL; Pulse 88; Resp 22; Temp 97.6(A); Pulse Ox 98% on R/A; Weight 117.93 kg; jg9 Height 6 ft. 0 in. (182.88 cm); 18:18 BP 145 / 75; Pulse 88; Resp 22; Temp 97.6(A); Pulse Ox 98% on R/A; jg9 22:33 BP 164 / 77; Pulse 94; Resp 17; Pulse Ox 99% on R/A; tw5 23:09 BP 157 / 66; Pulse 97; Resp 18; Pulse Ox 99% on R/A; tw5 17:55 Body Mass Index 35.26 (117.93 kg, 182.88 cm) jg9 MDM: 18:54 Data reviewed: vital signs, nurses notes. ED course: I was unable to insert a tongue kdr blade into the patient's mouth more than about an inch. Patient is clearly protecting her airway at this time. 19:07 Patient medically screened. rn 19:43 Differential Diagnosis: CVA, electrolyte abnormality, hypoglycemia, intracranial bleed, rn pneumonia, sepsis, UTI, volume depletion, Hepatic encephalopathy. Counseling: I had a detailed discussion with the patient and/or guardian regarding: the historical points, exam findings, and any diagnostic results supporting the discharge/admit diagnosis, lab results, radiology results, the need for further work-up and treatment in the hospital. Admission orders: after a detailed discussion of the patient's condition and case, the admit orders are written by me. ED course: Patient signed out to me at shift change by Dr. Anderson, plan was to admit for altered mental status and likely hepatic encephalopathy given cirrhosis history. Patient is somnolent and altered but currently protecting airway. Will admit to Dr. Griggs and administer rectal lactulose.. 03/02 18:17 Order name: COVID-19 SARS RT PCR (Document "Date of Onset" if Symptomatic); Complete jl7 Time: 19:29 03/02 18:23 Order name: Basic Metabolic Panel; Complete Time: 19:29 kdr 03/02 18:23 Order name: CBC with Diff; Complete Time: 19:29 kdr 03/02 18:23 Order name: LFT's; Complete Time: 19:29 kdr 03/02 18:23 Order name: Magnesium; Complete Time: 19:29 kdr 03/02 18:23 Order name: NT PRO-BNP; Complete Time: 19:29 kdr 03/02 18:23 Order name: PT-INR; Complete Time: 19:29 kdr 03/02 18:23 Order name: Troponin (emerg Dept Use Only); Complete Time: 19:29 kdr 03/02 18:23 Order name: Acetaminophen; Complete Time: 19:29 kdr 03/02 18:23 Order name: ETOH Level; Complete Time: 20:08 kdr 03/02 18:23 Order name: Ptt, Activated; Complete Time: 19:29 kdr 03/02 18:23 Order name: Salicylate; Complete Time: 20:08 kdr 03/02 18:23 Order name: Urine Drug Screen; Complete Time: 19:45 kdr 03/02 18:23 Order name: AMMONIA; Complete Time: 19:29 kdr 03/02 18:23 Order name: XRAY Chest (1 view); Complete Time: 19:29 kdr 03/02 18:23 Order name: EKG; Complete Time: 18:24 kdr 03/02 18:23 Order name: Cardiac monitoring; Complete Time: 18:35 kdr 03/02 18:23 Order name: EKG - Nurse/Tech; Complete Time: 18:35 kdr 03/02 18:23 Order name: IV Saline Lock; Complete Time: 18:35 kdr 03/02 18:23 Order name: Labs collected and sent; Complete Time: 18:35 kdr 03/02 18:23 Order name: O2 Per Protocol; Complete Time: 18:36 kdr 03/02 18:23 Order name: O2 Sat Monitoring; Complete Time: 18:35 kdr 03/02 18:23 Order name: CT Head Brain wo Cont; Complete Time: 19:29 kdr 03/02 19:11 Order name: Urine Dipstick-Ancillary; Complete Time: 19:29 EDMS 03/02 19:13 Order name: Urine --Ancillary (enter results); Complete Time: 19:29 cs9 03/02 20:13 Order name: CT Abd/Pelvis - IV Contrast Only la1 03/02 20:56 Order name: CT EDMS 03/02 18:23 Order name: Urine Dipstick-Ancillary (obtain specimen); Complete Time: 19:14 kdr EC:15 Rate is 87 beats/min. Rhythm is regular, Sinus Rhythm with No ectopy. QRS Alva is kdr Normal. ME interval is normal. QRS interval is normal. QT interval is normal. Clinical impression: NSR w/ Non-specific ST/T Changes. Administered Medications: 19:00 Drug: NS 0.9% 1000 ml Route: IV; Rate: 1 bolus; Site: right antecubital; jg9 23:14 Follow up: Response: No adverse reaction; IV Status: Completed infusion; IV Intake: as6 1000ml 19:43 CANCELLED (Other Intervention Used): Lactulose 30 grams 45 ml PO once la1 23:09 Drug: Lactulose 200 grams Route: ME; tw5 Disposition Summary: 03/02/21 19:45 Hospitalization Ordered Hospitalization Status: Inpatient Admission rn Provider: John Escobar rn Location: Telemetry/[facility]Sur (Inpatient) rn Condition: Stable rn Problem: new rn Symptoms: are unchanged rn Bed/Room Type: Standard rn Room Assignment: 219(03/02/21 23:05) cg Diagnosis - Hepatic Encephalopathy rn - Altered mental status, unspecified rn Forms: - Medication Reconciliation Form rn - SBAR form rn Signatures: Dispatcher [employer] Ilya Barriga MD MD kdr Shorty Ca MD MD rn Brandan Street, CONTRACT ADMINISTRATOR-C CONTRACT ADMINISTRATOR-Cla1 Liberty Beckett RN RN Susan Clark tw5 Linda Yo jg9 Daniele Hawkins RN as6 Corrections: (The following items were deleted from the chart) 18:18 18:17 Allergies: No Known Allergies; jg9 jg9 18:50 18:23 Suicide Screening ([place]) ordered. kdr jg9 19:43 19:31 Lactulose 30 grams 45 ml PO once ordered. la1 la1 23:05 19:45 rn cg
--- NOTE | 2021-03-02 19:45 | ER ---
Nurse's Notes [facility] Name: Nieves Juarez Age: 55 yrs Sex: Female : 1965 Arrival Date: 03/02/2021 Time: 17:45 Bed 7 Private MD: Diagnosis: Hepatic Encephalopathy;Altered mental status, unspecified Presentation: 03/02 17:55 Chief complaint: EMS states: Patient brought in from home by EMS after neighbor called jg9 due to patient being altered mental, per EMS patient has hx of cirrhosis of liver and previous presentation similar to today was secondary to elevated ammonia levels, no additional information available. Pt has left arm lymphedema and bilateral mastectomy, no BP or IV in left arm. Coronavirus screen: unknown patient unable to voice due to AMS. Ebola Screen: Unable to complete the Ebola screening because: altered mental status. Initial Sepsis Screen: Does the patient meet any 2 criteria? No. Patient's initial sepsis screen is negative. Does the patient have a suspected source of infection?. Risk Assessment: Do you want to hurt yourself or someone else? Unable to obtain. Onset of symptoms is unknown. 17:55 Method Of Arrival: EMS: [facility] 9 17:55 Acuity: ROSENDA 3 jg9 Triage Assessment: 18:19 General: Appears in no apparent distress. Behavior is calm, cooperative. Pain: Unable j to use pain scale. Patient is disoriented. Neuro: No deficits noted. Cardiovascular: No deficits noted. Respiratory: No deficits noted. GI: Abdomen is round Bowel sounds present X 4 quads. : No deficits noted. Derm: No deficits noted. Derm: Skin left arm edema-Hx mastectomy with residual lymphedema. Musculoskeletal: No deficits noted. 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 - Social history:: Smoking status: unknown. Screenin:22 Abuse screen: unknown. Nutritional screening: No deficits noted. Tuberculosis jg9 screening: Intervention for positive screen: unknown, no reports of symptoms from EMS. Fall Risk None identified. Assessment: 19:28 General: see triage assessment . as6 19:29 General: pt resting at this time, breathing is even and unlabored, safety measures as6 assessed . 22:30 General: Appears Behavior is drowsy. Neuro: Level of Consciousness is lethargic. tw5 Cardiovascular: Heart tones S1 S2 present. Respiratory: Airway is patent Trachea midline Respiratory effort is even, unlabored. 22:33 Cardiovascular:. tw5 22:33 Cardiovascular: Edema is 3+ to left forearm, left wrist, left hand and left fingers. tw5 Respiratory:. 22:41 General: minimal response to verbal stimuli . as6 23:09 Reassessment: Patient appears in no apparent distress at this time. No changes from tw5 previously documented assessment. Vital Signs: 17:55 BP 145 / 75 RL; Pulse 88; Resp 22; Temp 97.6(A); Pulse Ox 98% on R/A; Weight 117.93 kg; jg9 Height 6 ft. 0 in. (182.88 cm); 18:18 BP 145 / 75; Pulse 88; Resp 22; Temp 97.6(A); Pulse Ox 98% on R/A; jg9 22:33 BP 164 / 77; Pulse 94; Resp 17; Pulse Ox 99% on R/A; tw5 23:09 BP 157 / 66; Pulse 97; Resp 18; Pulse Ox 99% on R/A; tw5 17:55 Body Mass Index 35.26 (117.93 kg, 182.88 cm) jg9 ED Course: 17:45 Patient arrived in ED. eb 17:59 Ilya Anderson MD is Attending Physician. kdr 18:00 Arm band placed on right wrist. jg9 18:13 Linda Yo is Primary Nurse. jg9 18:17 Triage completed. jg9 18:20 Patient has correct armband on for positive identification. Placed in gown. Bed in low mh5 position. Call light in reach. Side rails up X2. Warm blanket given. cardiac care unit nurse on. Pulse ox on. NIBP on. 18:20 Initial lab(s) drawn, by ED staff, held in ED. EKG done, by ED staff, reviewed by Ilya hugoPino Anderson MD COVID swab sent to lab. 18:21 COVID-19 SARS RT PCR (Document "Date of Onset" if Symptomatic) Sent. 5 18:31 CT Head Brain wo Cont In Process Unspecified. EDMS 18:34 AMMONIA Sent. 5 18:34 Acetaminophen Sent. 5 18:34 ETOH Level Sent. 5 18:34 Ptt, Activated Sent. 5 18:35 Salicylate Sent. 5 18:35 Basic Metabolic Panel Sent. 5 18:35 CBC with Diff Sent. 5 18:35 LFT's Sent. [facility] 18:35 Magnesium Sent. 5 18:35 NT PRO-BNP Sent. [facility] 18:35 PT-INR Sent. [facility] 18:36 Troponin (emerg Dept Use Only) Sent. [facility] 18:36 COVID-19 SARS RT PCR (Document "Date of Onset" if Symptomatic) Sent. [facility] 18:36 Maintain EMS IV. Dressing intact. Good blood return noted. Site clean \\T\\ dry. [facility] 18:37 XRAY Chest (1 view) In Process Unspecified. EDMS 19:07 Attending Physician role handed off by Ilya Anderson MD rn 19:07 Shorty Ca MD is Attending Physician. rn 19:16 Urine --Ancillary (enter results) Sent. [facility] 19:16 Urine Drug Screen Sent. [facility] 19:44 John Escobar DO is Hospitalizing Provider. rn 20:30 Primary Nurse role handed off by Linda Yo cs9 22:02 Daniele Hawkins, RN is Primary Nurse. as6 23:45 No provider procedures requiring assistance completed. Patient admitted, IV remains in tw5 place. Administered Medications: 19:00 Drug: NS 0.9% 1000 ml Route: IV; Rate: 1 bolus; Site: right antecubital; jg9 23:14 Follow up: Response: No adverse reaction; IV Status: Completed infusion; IV Intake: as6 1000ml 19:43 CANCELLED (Other Intervention Used): Lactulose 30 grams 45 ml PO once la1 23:09 Drug: Lactulose 200 grams Route: WV; tw5 Intake: 23:14 IV: 1000ml; Total: 1000ml. as6 Outcome: 19:45 Decision to Hospitalize by Provider. rn 23:45 Admitted to Med/surg accompanied by nurse, with chart. tw5 23:45 Condition: unchanged 23:45 Instructed on the need for admit. 23:45 Patient left the ED. tw5 Signatures: Dispatcher [employer] EDIlya Dia MD MD kdr Nieto, Roman, MD MD rn Martinez, Susanne 5 Angy Collado Tiffany tw5 Tiffanie Davalos 9 Daniele Hawkins RN RN Linda Zuniga jg[address] [facility]-Cla[facility] Corrections: (The following items were deleted from the chart) 18:18 18:17 Allergies: No Known Allergies; jg9 jg9
[2021-03-02] MEDS ORDERED: LACTULOSE 20 GM/30 ML UCUP ONE ×2 (20:12→22:50)
--- NOTE | 2021-03-02 20:53 | P.HP ---
Certification for Inpatient Patient admitted to: Inpatient With expected LOS: >2 Midnights Patient will require the following post-hospital care: None Practitioner: I am a practitioner with admitting privileges, knowledge of patient current condition, hospital course, and medical plan of care. Services: Services provided to patient in accordance with Admission requirements found in Title 42 Section 412.3 of the Code of Federal Regulations Patient History Date of Service: 03/02/21 Primary Care Provider: Emma gusman Reason for admission: Hepatic encephalopathy History of Present Illness: 55-year-old female with history of cirrhosis of liver secondary to hepatitis C, diabetes mellitus type 2, hypertension, breast cancer status post bilateral mastectomy presents to emergency department for altered mental status. Sister reports patient has become increasingly altered over the course last 3 days, has had similar episodes in the past when her ammonia has been elevated. Patient does see Dr. Phan at [facility] for hepatology and had a TIPS procedure approximately 8 weeks ago. Patient is prescribed lactulose but only on a as needed basis. Upon arrival to the emergency department patient is extremely lethargic/drowsy not communicating verbally. Labs were significant for platelets 139 glucose 190 4T bili 1.9T bili 1.1 AST 66 alk phos 260 ammonia 220 - for signs of urinary tract infection or other infection abdomen soft and nondistended. CT abdomen pelvis pending at this time to evaluate recent TIPS procedure for complications. CT head brain negative for acute findings chest x- ray unremarkable. Patient given lactulose enema in the emergency department, ED provider wishes to admit for hepatic encephalopathy. Allergies NKDA Allergy (Uncoded 04/22/15 14:30) Unknown - Past Medical/Surgical History -: Cirrhosis/hep C -: Breast cancer 2016 -: Diabetes mellitus type 2 kbk-xnpfoms-oybarhtie -: Hypertension -: Tips -: Mastectomy Psychosocial/ Personal History: Unable to obtain - Family History Father History Unknown: Yes - Social History Smoking Status: Never smoker Place of Residence: Home Review of Systems is unable to be obtained (Altered) Physical Examination - Physical Exam General: Alert, In no apparent distress, Confused, Obese, Other (Obtunded) HEENT: Atraumatic, PERRLA, Mucous membr. moist/pink, EOMI, Sclerae nonicteric Neck: Supple, 2+ carotid pulse no bruit, No LAD, Without JVD or thyroid abnormal ity Respiratory: Normal air movement, Diminished Cardiovascular: Regular rate/rhythm, Normal S1 S2 Capillary refill: <2 Seconds Gastrointestinal: Normal bowel sounds, Other (Abdomen obese, soft no masses palpated no significant ascites noted) Musculoskeletal: No tenderness Integumentary: No rashes Neurological: Normal strength at 5/5 x4 extr - Studies Laboratory Data (last 24 hrs) 03/02/21 18:30: PT 11.7, INR 1.02, APTT 33.4 03/02/21 18:30: WBC 6.40, Hgb 12.4, Hct 36.9, Plt Count 139 L 03/02/21 18:30: Sodium 141, Potassium 4.9, BUN 13, Creatinine 0.85, Glucose 194 H, Magnesium 2.2, Total Bilirubin 1.9 H, AST 66 H, ALT 57, Alkaline Phosphatase 260 H Assessment and Plan - Plan Assessment: Hepatic encephalopathy, cirrhosis of the liver secondary to hepatitis C S/P TIPS procedure Diabetes mellitus type 0dlc-[id number]-vtrdjbztk with hyperglycemia Hypertension History of breast cancer S/P mastectomy Incidental CT finding 22 mm left adrenal mass adenoma versus neoplasm Plan: Hepatic encephalopathy, cirrhosis of the liver secondary to hepatitis C S/P TIPS procedure: Patient received lactulose enema in the emergency department will order scheduled lactulose may have to provide with additional enemas if patient is not tolerating p.o. N.p.o. at this time until tolerating p.o. patient is protecting airway at this time is arousable to painful stimulus. CT abdomen pelvis pending to evaluate TIPS procedure which was performed approximately 8 weeks ago was negative or complicated in addition to incidental finding detailed below. Patient will likely require scheduled lactulose at home as well, has only been taking it as needed. Diabetes mellitus type 2ybb-bgflhjf-uqrckmzkd with hyperglycemia: Every 6 Accu- Chek, sliding scale insulin therapy. Dextrose containing fluids at this time given n.p.o. status. Hypertension: As needed antihypertensive, obtain and continue medications as appropriate. History of breast cancer S/P mastectomy: Stable. Incidental CT finding 22 mm left adrenal mass adenoma versus neoplasm: Radiology suggest MRI adrenal gland, was unable to notify patient of findings given mental status currently. Will need to be made aware when more responsive. DVT PPX: Lovenox Code status: Full code MPOA Sister Cookie [phone] CT abdomen pelvis with IV contrast negative for complications with TIPS procedure does demonstrate cirrhosis in addition to a 22 mm left adrenal mass differential adenoma versus neoplasm suggest MRI adrenal glands differentiate. Discharge Plan: Home Plan to discharge in: 72 Hours - Advance Directives Does patient have a Living Will: No Does patient have a Durable POA for Healthcare: No - Code Status/Comfort Care Code Status Assessed: Yes (Full code) Critical Care: No Time Spent Managing Pts Care (In Minutes): 55
--- NOTE | 2021-03-02 20:55 | RAD REPORT ---
EXAM DESCRIPTION: CT - Abdomen Pelvis W Contrast - 03/02/2021 8:42 pm CLINICAL HISTORY: Abdominal pain COMPARISON: none. TECHNIQUE: Computed axial tomography of the abdomen pelvis was obtained. 100 cc Isovue-300 was admin istered intravenously. Oral contrast was not requested which limits evaluation of bowel. All CT scans are performed using dose optimization technique as appropriate and may include automated exposure control or mA/KV adjustment according to patient size. FINDINGS: Some images are degraded by patient motion artifact A cirrhotic liver. TIPS procedure has been performed. Mild splenomegaly. Trace amount of ascites Pancreas, right adrenal and kidneys are unremarkable. A 22 millimeter left adrenal mass. Hounsfield unit 81 There is no evidence of diverticulitis. A moderate amount of stool within the colon IMPRESSION: Cirrhosis 22 millimeter left adrenal mass does not have classic CT characteristics of an adenoma. Differential remains adenoma versus a neoplasm. MRI adrenal gland may be helpful to distinguish between the 2 poss ibilities.
[2021-03-02 23:55] VITALS: O2SAT 99
[2021-03-03] MEDS: INSULIN -REGULAR HUMAN 50 UNIT/0.5 ML ML SQ SCH ×4 (00:15→16:30)
[2021-03-03] MEDS ORDERED: ONDANSETRON 4 MG/2 ML VIAL IV PRN (00:15)
[2021-03-03] MEDS ORDERED: HYDRALAZINE HCL 20 MG/ML VIAL IV PRN (00:20)
[2021-03-03] MEDS: LACTULOSE 20 GM/30 ML UCUP PO SCH ×3 (01:39→12:18)
[2021-03-03] MEDS: D5 0.45 NS 1,000 ML IV SCH ×2 (01:55→09:31)
[2021-03-03 06:02] LABS: Absolute Lymphocytes (CBC) 1.8 K/uL (0.7-4.9); Basophils % 0.7 % (0-1.3); Hematocrit 35.8 % (36.0-45.0); Lymphocytes % 28.2 % (15.3-44.8); MPV 8.5 fL (7.6-11.3); RBC Red Blood Cell Count 3.85 M/uL (3.86-4.86)
--- NOTE | 2021-03-03 06:15 | P.PN ---
Subjective Date of Service: 03/03/21 Primary Care Provider: Emma Acevedo NP Chief Complaint: Hepatic encephalopathy Subjective: Improving (Patient more alert today.) Physical Examination - Vital Signs Temperature: 97.2 F Blood Pressure: 143/69 Pulse: 95 Respirations: 16 Pulse Ox (%): 98 - Studies Laboratory Data (last 24 hrs) 03/02/21 18:30: PT 11.7, INR 1.02, APTT 33.4 03/02/21 18:30: WBC 6.40, Hgb 12.4, Hct 36.9, Plt Count 139 L 03/02/21 18:30: Sodium 141, Potassium 4.9, BUN 13, Creatinine 0.85, Glucose 194 H, Magnesium 2.2, Total Bilirubin 1.9 H, AST 66 H, ALT 57, Alkaline Phosphatase 260 H Assessment & Plan Discharge Plan: Home Plan to discharge in: 48 Hours Physician Review Additional Text: COVID: negative CT Head: COMPARISON: None TECHNIQUE: Computed axial tomography of the head was obtained. IV contrast was not requested. All CT scans are performed using dose optimization technique as appropriate and may include automated exposure control or mA/KV adjustment according to patient size. FINDINGS: An intracranial bleed is not seen . The ventricles are normal in caliber. No extra-axial fluid collection is noted. Mild to moderate low-density areas within periventricular, deep and subcortical white matter likely represent ischemic changes secondary to small vessel disease. Fluid within the sinuses/ mastoids is not seen. IMPRESSION: No acute intracranial abnormality is seen. If patient's symptoms persist MRI of the brain would be recommended. CT scan Ab/Pelvis: COMPARISON: none. TECHNIQUE: Computed axial tomography of the abdomen pelvis was obtained. 100 cc Isovue-300 was administered intravenously. Oral contrast was not requested which limits evaluation of bowel. All CT scans are performed using dose optimization technique as appropriate and may include automated exposure control or mA/KV adjustment according to patient size. FINDINGS: Some images are degraded by patient motion artifact A cirrhotic liver. TIPS procedure has been performed. Mild splenomegaly. Trace amount of ascites Pancreas, right adrenal and kidneys are unremarkable. A 22 millimeter left adrenal mass. Hounsfield unit 81 There is no evidence of diverticulitis. A moderate amount of stool within the colon IMPRESSION: Cirrhosis 22 millimeter left adrenal mass does not have classic CT characteristics of an adenoma. Differential remains adenoma versus a neoplasm. MRI adrenal gland may be helpful to distinguish between the 2 possibilities. CXR: COMPARISON: 2009 FINDINGS: The lungs appear clear of acute infiltrate. The heart is normal size . Central venous catheter has its tip in the superior vena cava IMPRESSION: No acute abnormalities displayed Physical exam: General: Patient more alert today. HEENT: Atraumatic, PERRLA, Mucous membr. moist/pink, EOMI, Sclerae nonicteric Neck: Supple, 2+ carotid pulse no bruit, No LAD, Without JVD or thyroid abnormality Respiratory: Normal air movement, Diminished Cardiovascular: Regular rate/rhythm, Normal S1 S2 Capillary refill: <2 Seconds Gastrointestinal: Normal bowel sounds, Other (Abdomen obese, soft no masses palpated no significant ascites noted) Musculoskeletal: No tenderness Integumentary: No rashes Neurological: Normal strength at 5/5 x4 extr Impression: Hepatic encephalopathy, cirrhosis of the liver secondary to hepatitis C S/P TIPS procedure Diabetes mellitus type 1vsa-vamiiut-[id number] with hyperglycemia Hypertension History of breast cancer S/P mastectomy Incidental CT finding 22 mm left adrenal mass adenoma versus neoplasm Plan: Hepatic encephalopathy, cirrhosis of the liver secondary to hepatitis C S/P TIPS procedure: Ammonia level improved. Patient more alert today. Continue with lactulose 4 times a day. Maintain BM 2 to 3/day. Patient also takes Xifaxan 500 mg twice daily. Family will bring in prescription medication so this can be continued. Will decrease IV fluids. If taking good oral intake then will Hep- Lock IV. Anticipate continued improvement. Continue to monitor ammonia level in lab. Patient is seen by repack room worker in [place]. Patient had recent TIPS procedure. Anticipate discharge in the next 48 hours. Diabetes mellitus type 5vbf-vstshvr-qjhdymgtr with hyperglycemia: Continue with IV fluids. Will need to change IV fluids without dextrose if blood sugars greater than 200. Continue Accu-Cheks and sliding scale. Hemoglobin A1c 6.9 Hypertension: Need to obtain restart home medication. History of breast cancer S/P mastectomy: Stable. Incidental CT finding 22 mm left adrenal mass adenoma versus neoplasm: Radiology suggest MRI to evaluate adrenal gland. This can be done as an outpatient. DVT PPX: Lovenox Code status: Full code Advance care planning: Spoke with ZACKARY Sister Cookie [phone]. Patient is seen by repack room worker in [place]. Time Spent Managing Pts Care (In Minutes): 55
[2021-03-03 06:34] LABS: Albumin 2.2 g/dL (3.4-5.0); Bilirubin Total 1.8 mg/dL (0.2-1.0); Magnesium 2.1 mg/dL (1.8-2.4); Potassium 4.5 mmol/L (3.5-5.1); Protein, Total 6.5 g/dL (6.4-8.2); Thyroid Stimulating Hormone 2.3 uIU/mL (0.360-3.740)
[2021-03-03] MEDS ORDERED: ENOXAPARIN 40 MG/0.4 ML SQ SCH (09:00)
[2021-03-03] MEDS ORDERED: D5 0.45 NS 1,000 ML IV SCH (13:00)
[2021-03-03 17:01] VITALS: BP 188/82; TEMP 97.5
--- NOTE | 2021-03-03 17:51 | P.DS ---
Admission Date: 03/02/21 Discharge Date: 03/03/21 Primary Care Provider: Emma Acevedo NP Disposition: AMA-LEFT AGAINST MEDICAL ADVIC Discharge Condition: FAIR Reason for Admission: Hepatic encephalopathy Procedures: CT Head: COMPARISON: None TECHNIQUE: Computed axial tomography of the head was obtained. IV contrast was not requested. All CT scans are performed using dose optimization technique as appropriate and may include automated exposure control or mA/KV adjustment according to patient size. FINDINGS: An intracranial bleed is not seen . The ventricles are normal in caliber. No extra-axial fluid collection is noted. Mild to moderate low-density areas within periventricular, deep and subcortical white matter likely represent ischemic changes secondary to small vessel disease. Fluid within the sinuses/ mastoids is not seen. IMPRESSION: No acute intracranial abnormality is seen. If patient's symptoms persist MRI of the brain would be recommended. CT scan Ab/Pelvis: COMPARISON: none. TECHNIQUE: Computed axial tomography of the abdomen pelvis was obtained. 100 cc Isovue-300 was administered intravenously. Oral contrast was not requested which limits evaluation of bowel. All CT scans are performed using dose optimization technique as appropriate and may include automated exposure control or mA/KV adjustment according to patient size. FINDINGS: Some images are degraded by patient motion artifact A cirrhotic liver. TIPS procedure has been performed. Mild splenomegaly. Trace amount of ascites Pancreas, right adrenal and kidneys are unremarkable. A 22 millimeter left adrenal mass. Hounsfield unit 81 There is no evidence of diverticulitis. A moderate amount of stool within the colon IMPRESSION: Cirrhosis 22 millimeter left adrenal mass does not have classic CT characteristics of an adenoma. Differential remains adenoma versus a neoplasm. MRI adrenal gland may be helpful to distinguish between the 2 possibilities. CXR: COMPARISON: 2008 FINDINGS: The lungs appear clear of acute infiltrate. The heart is normal size . Central venous catheter has its tip in the superior vena cava IMPRESSION: No acute abnormalities displayed Physical exam: General: Patient more alert today. HEENT: Atraumatic, PERRLA, Mucous membr. moist/pink, EOMI, Sclerae nonicteric Neck: Supple, 2+ carotid pulse no bruit, No LAD, Without JVD or thyroid abnormality Respiratory: Normal air movement, Diminished Cardiovascular: Regular rate/rhythm, Normal S1 S2 Capillary refill: <2 Seconds Gastrointestinal: Normal bowel sounds, Other (Abdomen obese, soft no masses palpated no significant ascites noted) Musculoskeletal: No tenderness Integumentary: No rashes Neurological: Normal strength at 5/5 x4 extr Impression: Hepatic encephalopathy, cirrhosis of the liver secondary to hepatitis C S/P TIPS procedure Diabetes mellitus type 0tzv-tlnfqys-bysmookfk with hyperglycemia Hypertension History of breast cancer S/P mastectomy Incidental CT finding 22 mm left adrenal mass adenoma versus neoplasm Brief History of Present Illness: 55-year-old female with history of cirrhosis of liver secondary to hepatitis C, diabetes mellitus type 2, hypertension, breast cancer status post bilateral mastectomy presents to emergency department for altered mental status. Sister reports patient has become increasingly altered over the course last 3 days, has had similar episodes in the past when her ammonia has been elevated. Patient does see Dr. Phan at [facility] hepatology and had a TIPS procedure approximately 8 weeks ago. Patient is prescribed lactulose but only on a as needed basis. Upon arrival to the emergency department patient is extremely lethargic/drowsy not communicating verbally. Labs were significant for platelets 139 glucose 190 4T bili 1.9T bili 1.1 AST 66 alk phos 260 ammonia 220 - for signs of urinary tract infection or other infection abdomen soft and nondistended. CT abdomen pelvis pending at this time to evaluate recent TIPS procedure for complications. CT head brain negative for acute findings chest x- ray unremarkable. Patient given lactulose enema in the emergency department, ED provider wishes to admit for hepatic encephalopathy. Hospital Course: Patient was treated with lactulose in the hospital overnight and throughout the day, had great improvement in mental status. At this time patient is alert and mostly oriented, was unable to tell me the year, stated it was 2019 but was aware that it was about to be [place]. Patient otherwise fully oriented and ambulatory insisting that she go home to have [place] denny dinner with her family. Recommended patient stay overnight for additional doses of lactulose until she is fully oriented, patient not okay with this and fully insistent that she leaves. I insisted to speak with her MPOA Sister Cookie on the phone, Cookie was called who states that she will take care of her tonight and that she has her prescriptions including lactulose and Xifaxan at home as well as close follow-up with her liver specialist on Saturday. I believe with her current mental status and family this will be a safe plan although she will still be signing out AGAINST MEDICAL ADVICE. Patient left with her nephew by wheelchair. Vital Signs/Physical Exam: Temp Pulse Resp BP Pulse Ox 97.5 F 100 H 16 188/82 H 100 03/03/21 16:00 03/03/21 16:00 03/03/21 16:00 03/03/21 16:00 03/03/21 16:00 General: Alert, In no apparent distress, Oriented x3 HEENT: Atraumatic, PERRLA, EOMI Neck: Supple, JVD not distended Respiratory: Clear to auscultation bilaterally, Normal air movement Cardiovascular: Regular rate/rhythm, Normal S1 S2 Gastrointestinal: Normal bowel sounds, No tenderness Musculoskeletal: No tenderness Integumentary: No rashes Neurological: Normal speech, Normal tone, Normal affect Lymphatics: No axilla or inguinal lymphadenopathy Laboratory Data at Discharge: WBC 6.40 K/uL (4.3-10.9) 03/03/21 05:47 Hgb 11.9 g/dL (12.0-15.0) L 03/03/21 05:47 Hct 35.8 % (36.0-45.0) L 03/03/21 05:47 Plt Count 144 K/uL (152-406) L 03/03/21 05:47 PT 11.7 SECONDS (9.5-12.5) 03/02/21 18:30 INR 1.02 03/02/21 18:30 APTT 33.4 SECONDS (24.3-36.9) 03/02/21 18:30 Sodium 141 mmol/L (136-145) 03/03/21 05:47 Potassium 4.5 mmol/L (3.5-5.1) 03/03/21 05:47 BUN 13 mg/dL (7-18) 03/03/21 05:47 Creatinine 0.76 mg/dL (0.55-1.3) 03/03/21 05:47 Glucose 147 mg/dL (74-106) H 03/03/21 05:47 Magnesium 2.1 mg/dL (1.8-2.4) 03/03/21 05:47 Total Bilirubin 1.8 mg/dL (0.2-1.0) H 03/03/21 05:47 AST 54 U/L (15-37) H 03/03/21 05:47 ALT 47 U/L (12-78) 03/03/21 05:47 Alkaline Phosphatase 227 U/L (45-117) H 03/03/21 05:47 Triglycerides 44 mg/dL (<150) 03/03/21 05:47 Cholesterol 194 mg/dL (<200) 03/03/21 05:47 HDL Cholesterol 68 mg/dL (40-60) H 03/03/21 05:47 Cholesterol/HDL Ratio 2.85 03/03/21 05:47 Home Medications: Furosemide 40 mg PO BID 03/03/21 Glimepiride 2 mg PO BREAKFAST 03/03/21 Losartan Potassium 100 mg PO DAILY 03/03/21 Omeprazole [Prilosec] 40 mg PO DAILY 03/03/21 Propranolol [Inderal] 10 mg PO BID 03/03/21 Rifaximin [Xifaxan] 550 mg PO DAILY 03/03/21 Spironolactone 50 mg PO BID 03/03/21 Physician Discharge Instructions: Continue home medications including lactulose, Xifaxan. Keep appointment with your delicatessen goods stock clerk Dr. Rod at [facility] on Saturday. Return to ER for worsening symptoms. Diet: ADA Activity: Fall precautions Followup: [facility] [Primary Care Provider] - Time spent managing pt's care (in minutes): 35
== END 2021-03-03 17:56 | disposition left against medical advice (07) | DRG 443 ==
LOC: ER 17:19 → ERHOLD 19:37 → 2ND 23:12
PROVIDERS: ADMIT Family Medicine; ATTEND Family Medicine
DX: K72.90 Hepatic failure, unspecified without coma (principal); I10 Essential (primary) hypertension; E66.9 Obesity, unspecified; D35.02 Benign neoplasm of left adrenal gland; K74.60 Unspecified cirrhosis of liver; E11.65 Type 2 diabetes mellitus with hyperglycemia; B19.20 Unspecified viral hepatitis C without hepatic coma; Z68.35 Body mass index [BMI] 35.0-35.9, adult; Z85.3 Personal history of malignant neoplasm of breast; Z90.13 Acquired absence of bilateral breasts and nipples; Z53.29 Procedure and treatment not carried out because of patient's decision for other reasons; Z20.822 Contact with and (suspected) exposure to COVID-19
CPT/HCPCS: 36415; 70450; 71045; 74177; 80048; 80053; 80061; 80076; 80307; 80320; 80329; 81003; 81025; 82140; 82947; 83036; 83735; 83880; 84439; 84443; 84484; 85025; 85610; 85730; 93005; 96360; 96361; 99285; J1650; J7030; J7799; Q9967; U0003